=== PATIENT | female | born 1940 | race Caucasian/White ===

== ENCOUNTER → 2017-06-13 | Outpatient (CLI) | payer MEDICARE ==
[~2017-06-13] MED LIST: IOPAMIDOL-370 75 ML VIAL IV ONE
== END | disposition home or self-care (01) ==
LOC: RAH 07:48
PROVIDERS: ATTEND Family Medicine
DX: N28.1 Cyst of kidney, acquired (principal); K57.30 Diverticulosis of large intestine without perforation or abscess without bleeding; N13.30 Unspecified hydronephrosis; I72.2 Aneurysm of renal artery; N94.89 Other specified conditions associated with female genital organs and menstrual cycle; Z85.528 Personal history of other malignant neoplasm of kidney; Z90.5 Acquired absence of kidney; Z90.710 Acquired absence of both cervix and uterus
CPT/HCPCS: 74178; Q9967

== ENCOUNTER → 2017-06-17 | Outpatient (CLI) | payer MEDICARE | END | disposition home or self-care (01) | LOC: RAH 09:16 | PROVIDERS: ATTEND Internal Medicine Cardiovascular Disease | DX: I63.9 Cerebral infarction, unspecified (principal); G31.9 Degenerative disease of nervous system, unspecified | CPT/HCPCS: 70450 ==

== ENCOUNTER → 2020-09-29 | Outpatient (CLI) | payer MEDICARE | END | disposition home or self-care (01) | LOC: RAH 07:47 | PROVIDERS: ATTEND Family Medicine | DX: K76.0 Fatty (change of) liver, not elsewhere classified (principal); K57.30 Diverticulosis of large intestine without perforation or abscess without bleeding; I87.8 Other specified disorders of veins; N20.0 Calculus of kidney | CPT/HCPCS: 74176 ==

== ENCOUNTER → 2023-10-19 | Outpatient (CLI) | payer MEDICARE ==
[~2023-10-19] MED LIST changes: +IOHEXOL 350 MG/ML 100ML INFUS..BTL IV ONE; -IOPAMIDOL-370 75 ML VIAL IV ONE; +METOPROLOL TARTRATE 1 MG/ML 5ML VIAL IV ONE
== END | disposition home or self-care (01) ==
LOC: RAH 11:29
PROVIDERS: ATTEND Internal Medicine Cardiovascular Disease
DX: I25.110 Atherosclerotic heart disease of native coronary artery with unstable angina pectoris (principal)
CPT/HCPCS: 75574; J3490; Q9967

== ENCOUNTER → 2023-11-09 | Outpatient (CLI) | payer MEDICARE | END | disposition home or self-care (01) | LOC: RAH 12:33 | PROVIDERS: ATTEND Family Medicine | DX: N28.1 Cyst of kidney, acquired (principal); N94.89 Other specified conditions associated with female genital organs and menstrual cycle; N20.0 Calculus of kidney; N28.89 Other specified disorders of kidney and ureter; Z90.5 Acquired absence of kidney; Z90.49 Acquired absence of other specified parts of digestive tract | CPT/HCPCS: 74176 ==

== ENCOUNTER 2024-07-06 11:00 | Inpatient (IN) | payer MEDICARE ==
[~2024-07-06] VITALS: Ht 154.9 cm; Wt 81.6 kg
[2024-07-06 12:11] LABS: BASOPHILS # (AUTO) 0.04 K/uL (0.00-0.20); BASOPHILS % (AUTO) 0.5 % (0.0-5.0); EOSINOPHILS # (AUTO) 0.11 K/uL (0.00-0.70); EOSINOPHILS % (AUTO) 1.3 % (0.0-8.0); HEMATOCRIT 35.9 % (36-48); IMMATURE GRANULOCYTE ABSOLUTE 0.06 K/uL (0-1); LYMPHOCYTES # (AUTO) 1.7 K/uL (1.0-4.8); LYMPHOCYTES % (AUTO) 19.5 % (21.0-51.0); MEAN CORPUSCULAR HEMOGLOBIN 31.7 pg (27.0-33.0); MEAN CORPUSCULAR HGB CONC 32.6 g/dL (32.0-36.0); MEAN CORPUSCULAR VOLUME 97.3 fL (79-99); MONOCYTES # (AUTO) 0.9 K/uL (0.1-1.0); MONOCYTES % (AUTO) 10.6 % (3.0-13.0); NEUTROPHILS # (AUTO) 5.9 K/uL (1.8-7.7); NEUTROPHILS % (AUTO) 67.4 % (40.0-77.0); PLATELET COUNT (AUTO) 283 K/uL (130-400); RED BLOOD CELL COUNT(AUTO) 3.69 MIL/uL (4.00-5.50); RED CELL DISTRIBUTION WIDTH 13.5 % (11.0-15.5); WHITE BLOOD COUNT (AUTO) 8.7 K/uL (4.8-10.8)
[2024-07-06 12:15] LABS: INR 1.03 (0.85-1.15); PROTHROMBIN TIME 11.5 SEC (9.6-11.6)
[2024-07-06 12:16] LABS: PARTIAL THROMBOPLASTIN TIME 28.7 SEC (26.3-35.5)
--- NOTE | 2024-07-06 12:19 | EKG ---
[facility] Test Date: 2024-07-06 Test Time: 12:38:43 Pat Name: PACO MUNOZ Department: Patient ID: [id number] Room: Gender: F Tanbark Peeler: [id number] : 1940 Requested By: JOHN MAYNARD Order Number: [id number] Reading MD: Tiburcio Flor Measurements Intervals Philip Rate: 63 P: 56 MO: 167 QRS: -3 QRSD: 89 T: 30 QT: 418 QTc: 429 Interpretive Statements Sinus rhythm Atrial premature complex Compared to ECG 04/22/2017 21:55:47 Atrial premature complex(es) now present Ventricular premature complex(es) no longer present Left ventricular hypertrophy no longer present Electronically Signed On 07-07-2024 17:15:02 HEAD CONCIERGE by Tiburcio Flor Please click the below link to view image of tracing.
[2024-07-06 12:23] LABS: ALBUMIN 3.4 g/dL (3.5-5.0); BILIRUBIN,TOTAL 0.4 mg/dL (0.2-1.0); CREATININE 1.1 mg/dL (0.5-1.0); POTASSIUM 3.8 mmol/L (3.5-5.1); TOTAL PROTEIN, SERUM 7.2 g/dL (6.0-8.3)
[2024-07-06 12:44] VITALS: BP 164/60; PULSE 71; RESP 18; TEMP 97.3
[2024-07-06] MEDS ORDERED: ACET-2743 PO (13:55)
[2024-07-06] MEDS ORDERED: L THYROXINE PO (13:55)
[2024-07-06] MEDS ORDERED: HYDR25TA PO (13:55)
[2024-07-06] MEDS ORDERED: VITA1CAP17 PO (13:55)
[2024-07-06] MEDS ORDERED: FAMO20TA8 PO (13:55)
[2024-07-06] MEDS ORDERED: LOSA100T59 PO (13:55)
[2024-07-06] MEDS ORDERED: PRAV10TA39 PO (13:55)
[2024-07-06] MEDS ORDERED: LORA10TA7 PO (13:55)
[2024-07-06] MEDS ORDERED: APIX5TAB PO (13:55)
[2024-07-06] MEDS ORDERED: METO-391 PO (13:55)
[2024-07-06] MEDS ORDERED: GABA-529 PO ×2 (13:55)
[2024-07-06] MEDS ORDERED: FOLI0.8T43 PO (13:55)
[2024-07-06] MEDS ORDERED: HYDR-4060 PO (13:55)
[2024-07-06] MEDS ORDERED: CHOL200013 PO (13:55)
--- NOTE | 2024-07-06 14:01 | NUR ---
VERIFIED CALLED MEME TO VERIFY ELIQUIS HOLD FOR 48 HRS. PER MEME IT IS 48 HRS
[2024-07-11] VITALS (34 sets, daily range): BP systolic 97–156; BP diastolic 46–75; PULSE 56–81; RESP 12–19; TEMP 97.1–98.3; O2SAT 100
[2024-07-11] MEDS: ceFAZolin SODIUM 2 GM VIAL IVPB ONE
[2024-07-11] MEDS: INVANZ 1GM+NS 50ML IVPB 50 ML IV SCH (07:00)
[2024-07-11] MEDS: FAMOTIDINE 20MG VIAL IV ONE (07:08)
[2024-07-11] MEDS: acetaMINOPHEN 100 ML ONE (07:10)
[2024-07-11] MEDS ORDERED: ketaMINE 50MG/ML SYRINGE 50 MG/ML DISP.SYRIN ONE (07:12)
[2024-07-11] MEDS ORDERED: proPOFol 10 MG/ML 20ML VIAL IV ONE (07:18)
[2024-07-11] MEDS ORDERED: LIDOCAINE PF 100MG/5ML (2%) SYRINGE 5ML ONE (07:18)
[2024-07-11] MEDS ORDERED: rocuRONium bROMide 10MG/1ML 5ML VL ONE ×2 (07:18→09:48)
[2024-07-11] MEDS ORDERED: FENTanyl CITRate PF 50 MCG/1 ML 2ML VIAL ONE (07:18)
[2024-07-11] MEDS ORDERED: BUPIvacaine/PF 0.25% 30ML VIAL IJ ONE (07:47)
[2024-07-11] MEDS: 0.9%NACL 1000ML 1,000 ML IV ONE (08:49)
[2024-07-11] MEDS ORDERED: dexaMETHasone SOD PHOSPHATE 10MG/ML 1ML VIAL ONE (09:14)
[2024-07-11] MEDS ORDERED: ondanSETRON 4MG INJ ONE (09:15)
[2024-07-11] MEDS: ERTAPENEM SODIUM 1 GM/VIAL IV ONE (09:15)
[2024-07-11] MEDS ORDERED: phenylEPHRINE HCL 10 MG/ML 1ML VIAL IV ONE (09:26)
[2024-07-11] MEDS ORDERED: GLYCOPYRROLATE 0.2 MG/ML 5 ML VIAL ONE (13:13)
[2024-07-11] MEDS ORDERED: NEOSTIGMINE METHYLSULFATE 1MG/ML IV ONE (13:13)
[2024-07-11] MEDS: FENTanyl CITRate PF 50 MCG/1 ML 2ML VIAL ONE ×3 (13:54→15:21)
--- NOTE | 2024-07-11 13:57 | OP ---
Operative Note: DATE OF PROCEDURE: 07/11/24 SURGEON: JOHN MAYNARD MD PACKAGING LINE ATTENDANT: [None] ANESTHESIA: [General endotracheal anesthesia] ANESTHESIOLOGIST/APPLIANCE MECHANIC: [] PREOPERATIVE DIAGNOSIS: [Colovaginal fistula. Diverticulitis.] POSTOPERATIVE DIAGNOSIS: [Colovaginal fistula. Diverticulitis. Intra- abdominal adhesions.] SYNOPSIS: [No leak from anastomosis. Colovaginal fistula.] PROCEDURE: [Robotic low anterior resection. Creation of omental flap. Intraoperative flexible sigmoidoscopy. Extensive lysis of adhesions greater than 1 hour atypical for this case, extended procedural service.] ESTIMATED BLOOD LOSS: [100 mL] INDICATIONS: [The patient is a very pleasant 83-year-old female who presents to the office with a colovaginal fistula. She was offered operative management. The complications, risks alternatives and benefits were discussed with her and her family. Risks include infection, bleeding, injury to surrounding structures, need for further surgery, leak from anastomosis, need for stoma and poor bowel function. All questions were answered to their satisfaction and they all wished to proceed with the operation.] DESCRIPTION OF PROCEDURE: [The patient was brought to the operating theater and placed supine on the operating table. After appropriate general endotracheal anesthesia was administered and IV antibiotics given the patient was placed in the low lithotomy position. The abdomen was prepped and draped in appropriate sterile surgical fashion. Local anesthetic was injected and the Veress needle was used to insufflate the abdomen. The Optiview technique was used to the enter the abdomen without any injury to surrounding structures. Abdomen was explored and there was significant adhesions. Four other trocars were placed under direct visualization. The adhesions were lysed laparoscopically this was an extended procedural service atypical for this operation. The robot was then docked in the usual sterile fashion. The left colon was mobilized along the white line of Toldt. The left ureter was identified and preserved. The right ureter was identified and preserved. The mesentery supplying the segment of colon to be resected was isolated and transected with a stapler. The colon was densely adhered to the pelvic sidewall and of the vagina and this was taken down. The bladder was insufflated there was no evidence of injury. Colon was then amputated. A end-to-end anastomosis was created between the colon and the rectum. This was done with the 25 EEA stapler. The anastomosis was tested with significant amount of pressure without any evidence of leak. An AmnioFix was wrapped around the anastomosis. A flexible sigmoidoscope was inserted and passed through the anastomosis which was viable and had no evidence of bleeding. There was no evidence of leak at this point in time. An omental flap was created and placed in the pelvis. The fascia for the Pfannenstiel incision was closed with 1. PDS. 12 mm trocar site was closed with 0 Vicryl. Skin incisions closed with Monocryl. There were no complications. The instrument, sponge and needle count were reported as correct x2 by nursing staff. Excellent hemostasis was achieved before the end of the procedure.] JOHN MAYNARD MD Jul 11, 2024 13:57
[2024-07-11] MEDS ORDERED: morPHINE 2 MG SYG IV PRN (14:00)
[2024-07-11] MEDS ORDERED: ondanSETRON 4MG INJ IVP PRN (14:00)
--- NOTE | 2024-07-11 16:00 | NUR ---
ADMITTED FROM PACU Patient in room from pacu. Aox4, drowsy. VSS. Pain minimal, main complaint of pain in back due to bed. Patient oriented to room and given clear liquid. Son at bedside.
[2024-07-11] MEDS: HYDROcodone/APAP 5/325 1 TAB TABLET PO PRN (17:05)
--- NOTE | 2024-07-11 18:32 | HP ---
[facility] HISTORY AND PHYSICAL Date of Service: Jul 11, 2024 Time of Service: 18:32 HISTORY OF PRESENT ILLNESS: Date of service: 07/11/2024, patient was seen in PACU 83-year-old female with underlying history of hypertension, hyperlipidemia, atrial fibrillation, type 2 diabetes mellitus, history of chronic anticoagulation with Eliquis who has a history of colovaginal fistula followed by Dr. Richard with Colorectal surgery as outpatient. Patient today underwent robotic low anterior resection with lysis of intra-abdominal adhesions, colorectal anastomosis and repair of colovesical fistula. Patient is followed by Dr. York with Cardiology as outpatient. She has a history of atrial fibrillation and is maintained on metoprolol succinate 75 mg b.i.d. and Eliquis 5 mg b.i.d.. Patient does report that the last dose of Eliquis was about two days ago. Patient was seen postoperatively, she denies any chest pain, shortness of breath. Denies taking any diabetic medications as outpatient. Patient does report having postsurgical abdominal pain which she rates as 7/10 in intensity. Patient will be monitored closely while admitted. REVIEW OF SYSTEMS CONSTITUTIONAL: Denies fevers, chills, or night sweats. No unintentional weight loss reported. NEUROLOGICAL: Denies headache, amaurosis fugax, motor weakness, sensory deficit, vertigo/spinning sensation, gait abnormalities, or tremors. ENT: No hearing loss, otalgia, otorrhea, rhinitis, rhinorrhea, hoarseness, or sore throat. CARDIOVASCULAR: Denies any exertional angina, dyspnea on exertion, orthopnea, paroxysmal nocturnal dyspnea, palpitations, life-threatening arrhythmias, claudication. PULMONARY: Denies any shortness of breath, cough, phlegm/sputum, hemoptysis, pleuritic chest pain. SLEEP: Denies morning headaches, daytime somnolence or napping. Denies difficulty falling asleep, staying asleep, waking from sleep. Denies knowledge of snoring. GASTROINTESTINAL: Postoperative abdominal pain as expected GENITOURINARY: Denies frequency, urgency, nocturia, hematuria or incontinence (Storage/Irritative symptoms.) Low urinary stream, straining to void, urinary intermittency or hesitancy, splitting of the voiding stream, terminal dribbling. ENDOCRINOLOGIC: Denies polyuria, polydipsia, polyphagia or heat/cold intolerances. HEMATOLOGIC: Denies thrombophilia/previous clots, or coagulopathy/bleeding disorders. ONCOLOGIC: Denies personal history of malignancy. DERMATOLOGIC: Denies rashes or pruritus. PSYCHIATRIC: Denies any suicidal or homicidal ideation. Denies hallucinations. PAST MEDICAL HISTORY: Hypertension, hyperlipidemia, type 2 diabetes mellitus, history of chronic kidney disease, history of renal cell cancer status post right nephrectomy, arthritis, history of colo-vaginal fistula, GERD PAST SURGICAL HISTORY: Cholecystectomy in 1991, hysterectomy, appendectomy, hernia repair, tonsillectomy, knee replacement, right nephrectomy, history of lower anterior re section for colovaginal fistula in 1991 PAST SOCIAL HISTORY: Patient denies active smoking or alcohol consumption FAMILY HISTORY: Denies pertinent family history Allergies: Patient has allergic reaction to sulfa, adhesive tape, codeine Coded Allergies: Sulfa (Sulfonamide Antibiotics) (Verified Allergy, Unknown, 07/06/24) adhesive tape (Unverified Allergy, Unknown, 07/06/24) codeine (Verified Allergy, Unknown, 07/06/24) PHYSICAL EXAM GENERAL APPEARANCE: The patient is awake, alert, and oriented, in no acute cardiopulmonary distress. NEUROLOGICAL: Cranial nerves II-XII grossly intact. Motor is 5/5 in bilateral upper and lower extremities proximal to distal. No sensory deficits. HEENT: Face is symmetric. Pupils are equal and reactive. Extraocular movements are intact. NECK: Supple. No JVD. No thyromegaly. No submental, submandibular, pre- /postauricular, occipital or supraclavicular lymphadenopathy. CHEST: Normal chest expansion. No Telemetry. LUNGS: Absence of any rales, rhonchi or any wheezing. CARDIOVASCULAR: Regular. S1 and S2 normal. No appreciable rubs, murmurs or gallops. ABDOMEN: Soft, surgical incision site appears clean, dry and intact : Deferred. No Omer. EXTREMITIES: Non-edematous and not cyanotic. No clubbing. Good capillary refill. SKIN: No skin breakdown. Vital Sign (Last 24 Hours) 07/11/24 07/11/24 16:00 18:00 Temp 98.2 Pulse 76 Resp 18 B/P (MAP) 153/66 Pulse Ox 100 O2 Delivery Nasal Cannula O2 Flow Rate 3.0 FiO2 28 LABS: Laboratory: Test 07/11/24 14:22 Range/Units Whole Blood Glucose 227 #H 70-110 MG/DL Current Medications Medications (Trade) Dose Ordered Sig/Brandon Route PRN Reason Start Time Stop Time Status Last Admin Dose Admin Acetaminophen (TYLenol 325MG TAB) 650 mg Q4H PRN PO TEMPERATURE GREATER THAN 101 07/11/24 14:00 08/10/24 13:59 Acetaminophen/ Hydrocodone Bitart (NORco 5/325MG) 1 tab Q4H PRN PO MODERATE PAIN (4-6) 07/11/24 14:00 07/16/24 13:59 07/11/24 17:05 1 TAB Atorvastatin Calcium (LIPItor 10MG) 5 mg HS PO 07/11/24 21:00 08/10/24 20:59 Enoxaparin Sodium (Lovenox) 40 mg DAILY SQ 07/12/24 09:00 08/11/24 08:59 Ertapenem 50 ml @ 100 mls/hr ONCALL IV 07/11/24 07:00 07/11/24 14:00 DC Famotidine (Pepcid 20mg Vial) 20 mg DAILY IV 07/12/24 09:00 08/11/24 08:59 Gabapentin (NEURontin 100 mg CAP) 100 mg AM PO 07/12/24 09:00 08/11/24 08:59 Gabapentin (NEURontin 100 mg CAP) 200 mg HS PO 07/11/24 21:00 08/10/24 20:59 Home Med (Home Medication) (Vitamin B Complex & Vit C N... AM PO 07/12/24 09:00 08/11/24 08:59 Home Med (Home Medication) ([L Thyroxine] 150 MCG) AM PO 07/12/24 09:00 08/11/24 08:59 Insulin Human Regular (humuLIN R 100 UNIT/ML 3ML) AD PRN SQ SLIDING SCALE COVERAGE 07/11/24 14:00 08/10/24 13:59 Loratadine (LORATAdine 10 mg) 10 mg AM PO 07/12/24 09:00 08/11/24 08:59 Losartan Potassium (CozAAR 50 mg TAB) 50 mg BID PO 07/11/24 21:00 07/11/24 15:41 DC Metoprolol Succinate (TopROL XL) 25 mg BID PO 07/11/24 21:00 08/10/24 20:59 Metoprolol Succinate (TopROL XL) 50 mg BID PO 07/11/24 21:00 08/10/24 20:59 Morphine Sulfate (morPHINE 2MG SYG) 2 mg Q3H PRN IV MODERATE PAIN (4-6) 07/11/24 14:00 07/11/24 14:06 DC Morphine Sulfate (morPHINE 4MG SYG) 4 mg Q3H PRN IV SEVERE PAIN (7-10) 07/11/24 14:00 07/18/24 13:59 Ondansetron HCl (zoFRAN 4MG INJ) 4 mg Q4H PRN IVP NAUSEA 07/11/24 14:00 08/10/24 13:59 Potassium Chloride/Dextrose/ Sod Cl 1,000 ml @ 75 mls/hr [id number] IV 07/11/24 14:00 08/10/24 13:59 Vitamin B Complex/ Vit C/Folic Acid (Nephrovite Tablet) 1 cap DAILY PO 07/12/24 09:00 08/11/24 08:59 DIAGNOSTICS / RADIOLOGY: none ASSESSMENT: History of colo-vaginal fistula and diverticulitis, POA Status post robotic low anterior resection with extensive lysis of abdominal adhesions with Colorectal anastomosis and repair of colo-vaginal fistula by Dr. Richard, 07/11/2024 History of hypertension, POA Hyperlipidemia, POA Type 2 diabetes mellitus, POA History of paroxysmal atrial fibrillation, POA History of chronic anticoagulation with Eliquis, POA Chronic kidney disease, POA History of renal cell cancer status post right nephrectomy, POA PLAN: Patient will continue with close monitoring in medical-surgical floor under telemetry monitoring Continue with metoprolol succinate 75 mg b.i.d. for management of atrial fibrillation Patient initially had blood pressure in the 100s to 110 systolic in the PACU unit, blood pressure is starting to increase, continue with home dose of metoprolol succinate tonight, and we will dose adjust losartan to 50 mg bid ba sed on blood pressure trend. If patient remains hypertensive, we will resume HCTZ 25 mg tomorrow We will place patient on sliding scale insulin a.c. and HS Patient will have a cystogram tomorrow post operatively Continue with postoperative fluids and pain control per Dr. Richard We will hold Eliquis, we will defer to surgery when patient can safely resume anticoagulation given underlying history of atrial fibrillation All labs will be repeated in the morning Continue with DVT prophylaxis Lovenox, and Pepcid Date of service: 07/11/2024 Plan of care was discussed with patient at bedside, Julio C Hernadez MD Advanced Care Planning: Which of the following were discussed: Hospice care: Yes __ No _x_ Therapeutic options: Yes _x_ No __ Advance directives: Yes _x_ No __ Other discussions: Discussed with who?: Patient Voluntary nature of this service was explained to the patient? Yes _x_ No __ Amount of time spent: 20 minutes JULIO C HERNADEZ MD Jul 11, 2024 18:32
[2024-07-11] MEDS: D5W-1/2 NS/20MEQ KCL 1,000 ML IV SCH (19:27)
[2024-07-11] MEDS: morPHINE 4 MG SYG IV PRN (19:27)
[2024-07-11] MEDS ORDERED: hydrALAZine 20MG/ML VIAL IV PRN (19:30)
[2024-07-11] MEDS: INSULIN humuLIN R 100 UNIT/ML 3ML SQ PRN (20:00)
[2024-07-11] MEDS: metOPROLol sucCINATE 25 MG TAB.SR.24H PO SCH (20:02)
[2024-07-11] MEDS: atorVAStatin 10 MG TABLET PO SCH (20:02)
[2024-07-11] MEDS: LoSARTan 50 MG TABLET PO SCH (20:02)
[2024-07-11] MEDS: metOPROLol sucCINATE 50 MG TAB.SR.24H PO SCH (20:02)
[2024-07-11] MEDS: GABApentin 100 MG CAPSULE PO SCH (20:02)
[2024-07-11] MEDS: acetaMINOPHEN 325 MG TAB PO PRN (20:34)
[2024-07-11] MEDS ORDERED: LoSARTan 50 MG TABLET PO SCH (21:00)
[2024-07-12] VITALS (7 sets, daily range): BP systolic 97–147; BP diastolic 41–62; PULSE 72–80; RESP 17–20; TEMP 97.5–98.9; O2SAT 96–97
[2024-07-12 05:18] LABS: BASOPHILS # (AUTO) 0.01 K/uL (0.00-0.20); BASOPHILS % (AUTO) 0.1 % (0.0-5.0); EOSINOPHILS # (AUTO) 0.01 K/uL (0.00-0.70); EOSINOPHILS % (AUTO) 0.1 % (0.0-8.0); HEMATOCRIT 30.8 % (36-48); IMMATURE GRANULOCYTE ABSOLUTE 0.05 K/uL (0-1); LYMPHOCYTES # (AUTO) 0.8 K/uL (1.0-4.8); LYMPHOCYTES % (AUTO) 7.8 % (21.0-51.0); MEAN CORPUSCULAR HGB CONC 33.4 g/dL (32.0-36.0); MEAN CORPUSCULAR VOLUME 95.7 fL (79-99); MONOCYTES # (AUTO) 1.4 K/uL (0.1-1.0); MONOCYTES % (AUTO) 13.8 % (3.0-13.0); NEUTROPHILS # (AUTO) 7.9 K/uL (1.8-7.7); NEUTROPHILS % (AUTO) 77.7 % (40.0-77.0); PLATELET COUNT (AUTO) 278 K/uL (130-400); RED BLOOD CELL COUNT(AUTO) 3.22 MIL/uL (4.00-5.50); RED CELL DISTRIBUTION WIDTH 13.1 % (11.0-15.5); WHITE BLOOD COUNT (AUTO) 10.2 K/uL (4.8-10.8)
[2024-07-12 05:31] LABS: WBC MORPHOLOGY CONSISTENT W/DIFF
[2024-07-12 05:32] LABS: CREATININE 1.3 mg/dL (0.5-1.0); MAGNESIUM 1.7 mg/dL (1.80-2.40); POTASSIUM 4.1 mmol/L (3.5-5.1); THYROID STIMULATING HORMONE 0.42 uIU/mL (0.36-3.74)
[2024-07-12 05:53] LABS: HEMOGLOBIN A1C 5.9 % (4.0-6.0)
--- NOTE | 2024-07-12 08:14 | PN ---
COLORECTAL PROGRESS NOTE Date of Visit: Jul 12, 2024 Time of Visit: 08:11 Events / Notes: [83 yo with colovaginal fistula and diverticulitis who underwent a robotic low anterior resection with creation of omental flap, intraoperative flexible sig moidoscopy, and extensive lysis of adhesions. Her VSS this morning and she is hemodynamically stable. On exam, patient is resting in HF. Respirations unlabored with BBS clear. She has tolerated clear fluids with no n/v. Abdomen is soft with active bs. Incisions D&I eliseo with dermabond. Torsten drain with sanguinous output. Navarro cath draining clear concentrated urine. SCDS in place. Oriented to poc and encouraged I/S exercises and ambulation. She verbalized understanding and agreement. Son at bedside. Review of Systems: CONSTITUTIONAL: No malaise or change in sensation of wellbeing. ENMT: No rhinorrhea, otorrhea, sinus pain, ear ache. CARDIOVASCULAR: No angina, palpitations, orthopnea or paroxysmal dyspnea. RESPIRATORY: No SOB. GASTROINTESTINAL: No abdominal pain, nausea, vomiting, diarrhea, hematemesis, melena or change in the patient's habitual bowel movements consistency/number. GENITOURINARY: No dysuria, hematuria or change in bladder continence. MUSCULOSKELETAL: No new muscle pain or decrease in muscular strength. No new joint swelling, redness or tenderness. SKIN: No new rash. Physical Exam: GEN: Awake, alert, oriented in person, time and place, and in no acute distress. HEENT:No rhinorrhea. Oral pharyngeal mucosa is pink, moist and within normal limits. CHEST: Inspection, and palpation of the chest were unremarkable. Lung auscultation revealed normal breath sounds bilaterally. CARDIAC: PMI is within normal limits. Heart sounds are regular. ABD: Soft, non-tender and not distended. No peritoneal signs on palpation. No organomegaly. Normal bowel sounds. Incisions D&I rotary driller with dermabond. TORSTEN drain with sanguinous output. Navarro cath with clear concentrated urine. EXT: No cyanosis or clubbing. 1-2 + edema to bilateral lower extremities. SCDS in place. . SKIN: Intact. No rashes. JOINTS: No evidence of synovitis or acute arthritis. NEURO: Alert and oriented to name, place and person. No focal motor deficits. Normal speech. Strength is normal. Vital Signs (last 8hr) Date Time Temp Pulse Resp B/P (MAP) Pulse Ox O2 Delivery O2 Flow Rate FiO2 07/12/24 06:29 72 18 N/Cannula Low lpm 1.0 24 07/12/24 04:00 97.7 80 17 114/62 97 Nasal Cannula 1.0 Laboratory: [ ] Laboratory: Test 07/12/24 05:28 07/12/24 04:39 Range/Units Whole Blood Glucose 131 H 70-110 MG/DL White Blood Count 10.2 4.8-10.8 K/uL Red Blood Count 3.22 L 4.00-5.50 MIL/uL Hemoglobin 10.3 L 12.0-16.0 g/dL Hematocrit 30.8 L 36-48 % Mean Corpuscular Volume 95.7 79-99 fL Mean Corpuscular Hemoglobin 32.0 27.0-33.0 pg Mean Corpuscular Hemoglobin Concent 33.4 32.0-36.0 g/dL Red Cell Distribution Width 13.1 11.0-15.5 % Platelet Count 278 130-400 K/uL Mean Platelet Volume 10.3 7.5-10.5 fL Immature Granulocyte % (Auto) 0.5 0-1 % Neutrophils (%) (Auto) 77.7 H 40.0-77.0 % Lymphocytes (%) (Auto) 7.8 L 21.0-51.0 % Monocytes (%) (Auto) 13.8 H 3.0-13.0 % Eosinophils (%) (Auto) 0.1 0.0-8.0 % Basophils (%) (Auto) 0.1 0.0-5.0 % Neutrophils # (Auto) 7.9 H 1.8-7.7 K/uL Lymphocytes # (Auto) 0.8 L 1.0-4.8 K/uL Monocytes # (Auto) 1.4 H 0.1-1.0 K/uL Eosinophils # (Auto) 0.01 0.00-0.70 K/uL Basophils # (Auto) 0.01 0.00-0.20 K/uL Absolute Immature Granulocyte (auto 0.05 0-1 K/uL Nucleated Red Blood Cells 0.0 0.0-0.19 % White Cell Morphology Comment CONSISTENT W/DIFF Sodium Level 137 136-145 mmol/L Potassium Level 4.1 3.5-5.1 mmol/L Chloride Level 104 101-111 mmol/L Carbon Dioxide Level 25 21-32 mmol/L Blood Urea Nitrogen 18 7-18 mg/dL Creatinine 1.3 H 0.5-1.0 mg/dL Glomerular Filtration Rate Calc 41 >90 mL/min Random Glucose 133 H 70-105 mg/dL Hemoglobin A1c 5.9 4.0-6.0 % Estimated Average Glucose (eAG) 123 70-126 mg/dL Total Calcium 8.2 L 8.5-10.1 mg/dL Magnesium Level 1.70 L 1.80-2.40 mg/dL Thyroid Stimulating Hormone (TSH) 0.42 0.36-3.74 uIU/mL Current Medications Medications (Trade) Dose Ordered Sig/Brandon Route PRN Reason Start Time Stop Time Status Last Admin Dose Admin Acetaminophen (TYLenol 325MG TAB) 650 mg Q4H PRN PO TEMPERATURE GREATER THAN 101 07/11/24 14:00 08/10/24 13:59 07/11/24 20:34 650 MG Acetaminophen/ Hydrocodone Bitart (NORco 5/325MG) 1 tab Q4H PRN PO MODERATE PAIN (4-6) 07/11/24 14:00 07/16/24 13:59 07/11/24 23:48 1 TAB Atorvastatin Calcium (LIPItor 10MG) 5 mg HS PO 07/11/24 21:00 08/10/24 20:59 07/11/24 20:02 5 MG Enoxaparin Sodium (Lovenox) 40 mg DAILY SQ 07/12/24 09:00 08/11/24 08:59 Ertapenem 50 ml @ 100 mls/hr ONCALL IV 07/11/24 07:00 07/11/24 14:00 DC Famotidine (Pepcid 20mg Vial) 20 mg DAILY IV 07/12/24 09:00 08/11/24 08:59 Gabapentin (NEURontin 100 mg CAP) 100 mg AM PO 07/12/24 09:00 08/11/24 08:59 Gabapentin (NEURontin 100 mg CAP) 200 mg HS PO 07/11/24 21:00 08/10/24 20:59 07/11/24 20:02 200 MG Home Med (Home Medication) (Vitamin B Complex & Vit C N... AM PO 07/12/24 09:00 08/11/24 08:59 Home Med (Home Medication) ([L Thyroxine] 150 MCG) AM PO 07/12/24 09:00 08/11/24 08:59 Hydralazine HCl (APRESOLine 20MG INJ) 5 mg Q6H PRN IV ADMINISTER FOR SBP > 160 07/11/24 19:30 08/10/24 19:29 Insulin Human Regular (humuLIN R 100 UNIT/ML 3ML) AD PRN SQ SLIDING SCALE COVERAGE 07/11/24 14:00 08/10/24 13:59 Loratadine (LORATAdine 10 mg) 10 mg AM PO 07/12/24 09:00 08/11/24 08:59 Losartan Potassium (CozAAR 50 mg TAB) 50 mg BID PO 07/11/24 21:00 07/11/24 15:41 DC Losartan Potassium (CozAAR 50 mg TAB) 50 mg BID PO 07/11/24 21:00 08/10/24 20:59 07/11/24 20:02 50 MG Metoprolol Succinate (TopROL XL) 25 mg BID PO 07/11/24 21:00 08/10/24 20:59 07/11/24 20:02 25 MG Metoprolol Succinate (TopROL XL) 50 mg BID PO 07/11/24 21:00 08/10/24 20:59 07/11/24 20:02 50 MG Morphine Sulfate (morPHINE 2MG SYG) 2 mg Q3H PRN IV MODERATE PAIN (4-6) 07/11/24 14:00 07/11/24 14:06 DC Morphine Sulfate (morPHINE 4MG SYG) 4 mg Q3H PRN IV SEVERE PAIN (7-10) 07/11/24 14:00 07/18/24 13:59 07/11/24 22:35 4 MG Ondansetron HCl (zoFRAN 4MG INJ) 4 mg Q4H PRN IVP NAUSEA 07/11/24 14:00 08/10/24 13:59 Potassium Chloride/Dextrose/ Sod Cl 1,000 ml @ 75 mls/hr [id number] IV 07/11/24 14:00 08/10/24 13:59 07/11/24 19:27 75 MLS/HR Vitamin B Complex/ Vit C/Folic Acid (Nephrovite Tablet) 1 cap DAILY PO 07/12/24 09:00 08/11/24 08:59 ] Assessment: [Colovaginal fistula, diverticulitis] Plan: [Advance diet Leave navarro cath in place. Pending Cystogram Encourage ambulation tid PT to assist with ambulation Encourage I/S exercises Pain meds as needed Antiemetics prn Please call with questions, concerns, and change in clinical status' Plan for disposition in the next 24-48 hours Appreciate hospitalist's assistance in our patient's care. ] DYLAN ELIZALDE NP Jul 12, 2024 08:14
[2024-07-12] MEDS: THYROXINE PO SCH (08:34)
[2024-07-12] MEDS: (Vitamin B Complex & Vit C No.3 (B Complex with Vitamin C) PO SCH (08:34)
[2024-07-12] MEDS: GABApentin 100 MG CAPSULE PO SCH (08:39)
[2024-07-12] MEDS: LORATAdine 10 mg 10 MG TABLET PO SCH (08:41)
[2024-07-12] MEDS: Vitamin B Complex/Vit C/Folic Acid PO SCH (08:41)
[2024-07-12] MEDS: FAMOTIDINE 20MG VIAL IV SCH (08:41)
[2024-07-12] MEDS: ENOXAPARIN SODIUM 40 MG/0.4 ML SYRINGE SQ SCH (08:45)
[2024-07-12] MEDS ORDERED: PHARMACY COMMUNICATION MISC SCH (09:30)
--- NOTE | 2024-07-12 10:41 | PN ---
[facility] PROGRESS NOTE Date of Service: Jul 12, 2024 Time of Service: 10:34 SUBJECTIVE: [ ] 83-year-old female with underlying history of hypertension, hyperlipidemia, atrial fibrillation, type 2 diabetes mellitus, history of chronic anticoagulation with Eliquis who has a history of colovaginal fistula followed by Dr. Richard with Colorectal surgery as outpatient. Status post robotic low anterior resection with lysis of intra-abdominal adhesions, colorectal anastomosis and repair of colovesical fistula. Is scheduled for a cystogram today. Patient recuperating well hemodynamically stable. REVIEW OF SYSTEMS CONSTITUTIONAL: Denies fevers, chills, or night sweats. No unintentional weight loss reported. NEUROLOGICAL: Denies headache, amaurosis fugax, motor weakness, sensory deficit, vertigo/spinning sensation, gait abnormalities, or tremors. ENT: No hearing loss, otalgia, otorrhea, rhinitis, rhinorrhea, hoarseness, or sore throat. CARDIOVASCULAR: Denies any exertional angina, dyspnea on exertion, orthopnea, paroxysmal nocturnal dyspnea, palpitations, life-threatening arrhythmias, claudication. PULMONARY: Denies any shortness of breath, cough, phlegm/sputum, hemoptysis, pleuritic chest pain. SLEEP: Denies morning headaches, daytime somnolence or napping. Denies difficulty falling asleep, staying asleep, waking from sleep. Denies knowledge of snoring. GASTROINTESTINAL: Postoperative abdominal pain as expected GENITOURINARY: Denies frequency, urgency, nocturia, hematuria or incontinence (Storage/Irritative symptoms.) Low urinary stream, straining to void, urinary intermittency or hesitancy, splitting of the voiding stream, terminal dribbling. ENDOCRINOLOGIC: Denies polyuria, polydipsia, polyphagia or heat/cold intolerances. HEMATOLOGIC: Denies thrombophilia/previous clots, or coagulopathy/bleeding disorders. ONCOLOGIC: Denies personal history of malignancy. DERMATOLOGIC: Denies rashes or pruritus. PSYCHIATRIC: Denies any suicidal or homicidal ideation. Denies hallucinations. PHYSICAL EXAM GENERAL APPEARANCE: The patient is awake, alert, and oriented, in no acute cardiopulmonary distress. NEUROLOGICAL: Cranial nerves II-XII grossly intact. Motor is 5/5 in bilateral upper and lower extremities proximal to distal. No sensory deficits. HEENT: Face is symmetric. Pupils are equal and reactive. Extraocular movements are intact. NECK: Supple. No JVD. No thyromegaly. No submental, submandibular, pre- /postauricular, occipital or supraclavicular lymphadenopathy. CHEST: Normal chest expansion. No Telemetry. LUNGS: Absence of any rales, rhonchi or any wheezing. CARDIOVASCULAR: Regular. S1 and S2 normal. No appreciable rubs, murmurs or gallops. ABDOMEN: Soft, surgical incision site appears clean, dry and intact : Deferred. No Omer. EXTREMITIES: Non-edematous and not cyanotic. No clubbing. Good capillary refill. SKIN: No skin breakdown. Vital Signs (last 8hr) Date Time Temp Pulse Resp B/P (MAP) Pulse Ox O2 Delivery O2 Flow Rate FiO2 07/12/24 08:00 96 Room Air* 0 21 07/12/24 08:00 99.0 74 18 106/46 96 Room Air 21 07/12/24 06:29 72 18 N/Cannula Low lpm 1.0 24 07/12/24 04:00 97.7 80 17 114/62 97 Nasal Cannula 1.0 LABS: Laboratory: Test 07/12/24 05:28 07/12/24 04:39 Range/Units Whole Blood Glucose 131 H 70-110 MG/DL White Blood Count 10.2 4.8-10.8 K/uL Red Blood Count 3.22 L 4.00-5.50 MIL/uL Hemoglobin 10.3 L 12.0-16.0 g/dL Hematocrit 30.8 L 36-48 % Mean Corpuscular Volume 95.7 79-99 fL Mean Corpuscular Hemoglobin 32.0 27.0-33.0 pg Mean Corpuscular Hemoglobin Concent 33.4 32.0-36.0 g/dL Red Cell Distribution Width 13.1 11.0-15.5 % Platelet Count 278 130-400 K/uL Mean Platelet Volume 10.3 7.5-10.5 fL Immature Granulocyte % (Auto) 0.5 0-1 % Neutrophils (%) (Auto) 77.7 H 40.0-77.0 % Lymphocytes (%) (Auto) 7.8 L 21.0-51.0 % Monocytes (%) (Auto) 13.8 H 3.0-13.0 % Eosinophils (%) (Auto) 0.1 0.0-8.0 % Basophils (%) (Auto) 0.1 0.0-5.0 % Neutrophils # (Auto) 7.9 H 1.8-7.7 K/uL Lymphocytes # (Auto) 0.8 L 1.0-4.8 K/uL Monocytes # (Auto) 1.4 H 0.1-1.0 K/uL Eosinophils # (Auto) 0.01 0.00-0.70 K/uL Basophils # (Auto) 0.01 0.00-0.20 K/uL Absolute Immature Granulocyte (auto 0.05 0-1 K/uL Nucleated Red Blood Cells 0.0 0.0-0.19 % White Cell Morphology Comment CONSISTENT W/DIFF Sodium Level 137 136-145 mmol/L Potassium Level 4.1 3.5-5.1 mmol/L Chloride Level 104 101-111 mmol/L Carbon Dioxide Level 25 21-32 mmol/L Blood Urea Nitrogen 18 7-18 mg/dL Creatinine 1.3 H 0.5-1.0 mg/dL Glomerular Filtration Rate Calc 41 >90 mL/min Random Glucose 133 H 70-105 mg/dL Hemoglobin A1c 5.9 4.0-6.0 % Estimated Average Glucose (eAG) 123 70-126 mg/dL Total Calcium 8.2 L 8.5-10.1 mg/dL Magnesium Level 1.70 L 1.80-2.40 mg/dL Thyroid Stimulating Hormone (TSH) 0.42 0.36-3.74 uIU/mL Current Medications Medications (Trade) Dose Ordered Sig/Brandon Route PRN Reason Start Time Stop Time Status Last Admin Dose Admin Acetaminophen (TYLenol 325MG TAB) 650 mg Q4H PRN PO TEMPERATURE GREATER THAN 101 07/11/24 14:00 08/10/24 13:59 07/11/24 20:34 650 MG Acetaminophen/ Hydrocodone Bitart (NORco 5/325MG) 1 tab Q4H PRN PO MODERATE PAIN (4-6) 07/11/24 14:00 07/16/24 13:59 07/11/24 23:48 1 TAB Atorvastatin Calcium (LIPItor 10MG) 5 mg HS PO 07/11/24 21:00 08/10/24 20:59 07/11/24 20:02 5 MG Enoxaparin Sodium (Lovenox) 40 mg DAILY SQ 07/12/24 09:00 08/11/24 08:59 07/12/24 08:45 40 MG Ertapenem 50 ml @ 100 mls/hr ONCALL IV 07/11/24 07:00 07/11/24 14:00 DC Famotidine (Pepcid 20mg Vial) 20 mg DAILY IV 07/12/24 09:00 08/11/24 08:59 07/12/24 08:41 20 MG Gabapentin (NEURontin 100 mg CAP) 100 mg AM PO 07/12/24 09:00 08/11/24 08:59 07/12/24 08:39 100 MG Gabapentin (NEURontin 100 mg CAP) 200 mg HS PO 07/11/24 21:00 08/10/24 20:59 07/11/24 20:02 200 MG Home Med (Home Medication) (Vitamin B Complex & Vit C N... AM PO 07/12/24 09:00 08/11/24 08:59 Home Med (Home Medication) ([L Thyroxine] 150 MCG) AM PO 07/12/24 09:00 08/11/24 08:59 Hydralazine HCl (APRESOLine 20MG INJ) 5 mg Q6H PRN IV ADMINISTER FOR SBP > 160 07/11/24 19:30 08/10/24 19:29 Insulin Human Regular (humuLIN R 100 UNIT/ML 3ML) AD PRN SQ SLIDING SCALE COVERAGE 07/11/24 14:00 08/10/24 13:59 Loratadine (LORATAdine 10 mg) 10 mg AM PO 07/12/24 09:00 08/11/24 08:59 07/12/24 08:41 10 MG Losartan Potassium (CozAAR 50 mg TAB) 50 mg BID PO 07/11/24 21:00 07/11/24 15:41 DC Losartan Potassium (CozAAR 50 mg TAB) 50 mg BID PO 07/11/24 21:00 08/10/24 20:59 07/11/24 20:02 50 MG Metoprolol Succinate (TopROL XL) 25 mg BID PO 07/11/24 21:00 08/10/24 20:59 07/11/24 20:02 25 MG Metoprolol Succinate (TopROL XL) 50 mg BID PO 07/11/24 21:00 08/10/24 20:59 07/11/24 20:02 50 MG Morphine Sulfate (morPHINE 2MG SYG) 2 mg Q3H PRN IV MODERATE PAIN (4-6) 07/11/24 14:00 07/11/24 14:06 DC Morphine Sulfate (morPHINE 4MG SYG) 4 mg Q3H PRN IV SEVERE PAIN (7-10) 07/11/24 14:00 07/18/24 13:59 07/12/24 08:46 4 MG Ondansetron HCl (zoFRAN 4MG INJ) 4 mg Q4H PRN IVP NAUSEA 07/11/24 14:00 08/10/24 13:59 Pharmacy Profile Note (Pharmacy Communication) 1 each ONCE MISC 07/12/24 09:30 07/12/24 09:45 DC Potassium Chloride/Dextrose/ Sod Cl 1,000 ml @ 75 mls/hr [id number] IV 07/11/24 14:00 08/10/24 13:59 07/11/24 19:27 75 MLS/HR Vitamin B Complex/ Vit C/Folic Acid (Nephrovite Tablet) 1 cap DAILY PO 07/12/24 09:00 08/11/24 08:59 07/12/24 08:41 1 CAP DIAGNOSTICS / RADIOLOGY: [ ] ASSESSMENT: History of colo-vaginal fistula and diverticulitis, POA Status post robotic low anterior resection with extensive lysis of abdominal adhesions with Colorectal anastomosis and repair of colo-vaginal fistula by Dr. Richard, 07/11/2024 History of hypertension, POA Hyperlipidemia, POA Type 2 diabetes mellitus, POA History of paroxysmal atrial fibrillation, POA History of chronic anticoagulation with Eliquis, POA Chronic kidney disease, POA History of renal cell cancer status post right nephrectomy, POA PLAN: admit: medical-surgical floor under telemetry monitoring consulted for Medical management: primary DR Richard patient having cystogram today post operatively s/p robotic low anterior resection with extensive lysis of abdominal adhesions with Colorectal anastomosis and repair of colo-vaginal fistula will follow surgeon post operative recommendation cont with IVF's on Eliqus; defer to surgery when to restart Diet: CLD defer Encourage ambulation and deep breathing exercise while awake. IS usage Home medications resumed: metoprolol succinate 75 mg b.i.d. for management of atrial fibrillation and lostartan for BP controlled cont with sliding scale insulin a.c. and HS Replace electrolytes as per protocol to keep potassium above 4.0 magnesium 2.0. Continue pain management for adequate pain control PT services Continue with DVT prophylaxis Lovenox, and Pepcid All questions addressed Further orders as per response to treatment ATTESTATION BY PHYSICIAN I have seen and examined the patient. I reviewed the documentation, medical decision making, and treatment plan as noted by the mid-level provider above. I agree with the findings and plan of care. Lovely Lynn MD, ELIZABETH NP Jul 12, 2024 10:41
[2024-07-12] MEDS: levoTHYROxine 150 MCG TABLET PO ONE (10:56)
--- NOTE | 2024-07-12 11:26 | NUR ---
DCP Patient states lives in house alone and has great neighbors who can "step in" to help. Judith Paulson, Friend/Neighbor [phone] will be readily available. States her POA is Shu Jason, daughter. Her home has 4 steps but does not fell that will be an issue. States she has a walk in shower, shower chair and transfer chair which she usually uses for travel (flights). She states she remains independent and drives self. State sable to complete ADL's on her own. Denies home health services or dialysis services. PCP - Ivonne Morse MD Pharmacy - [facility]. Denies additional needs at discharge at this time. Judith Paulson, Friend/Neighbor [phone] at discharge. Addendum: 07/12/24 at 1133 by MELIDA PRINCE RN CM Amended: Links added.
[2024-07-13] VITALS (8 sets, daily range): BP systolic 111–134; BP diastolic 48–79; PULSE 73–89; RESP 16–20; TEMP 98.3–100.8; O2SAT 95–97
[2024-07-13 05:32] LABS: BASOPHILS # (AUTO) 0.01 K/uL (0.00-0.20); BASOPHILS % (AUTO) 0.1 % (0.0-5.0); EOSINOPHILS # (AUTO) 0.05 K/uL (0.00-0.70); EOSINOPHILS % (AUTO) 0.6 % (0.0-8.0); HEMATOCRIT 29.8 % (36-48); IMMATURE GRANULOCYTE ABSOLUTE 0.05 K/uL (0-1); LYMPHOCYTES # (AUTO) 1.2 K/uL (1.0-4.8); LYMPHOCYTES % (AUTO) 14.1 % (21.0-51.0); MEAN CORPUSCULAR HEMOGLOBIN 31.7 pg (27.0-33.0); MEAN CORPUSCULAR HGB CONC 32.6 g/dL (32.0-36.0); MEAN CORPUSCULAR VOLUME 97.4 fL (79-99); MONOCYTES # (AUTO) 1.4 K/uL (0.1-1.0); MONOCYTES % (AUTO) 15.8 % (3.0-13.0); NEUTROPHILS % (AUTO) 68.8 % (40.0-77.0); PLATELET COUNT (AUTO) 227 K/uL (130-400); RED BLOOD CELL COUNT(AUTO) 3.06 MIL/uL (4.00-5.50); RED CELL DISTRIBUTION WIDTH 13.5 % (11.0-15.5); WHITE BLOOD COUNT (AUTO) 8.8 K/uL (4.8-10.8)
[2024-07-13 05:40] LABS: POTASSIUM 3.8 mmol/L (3.5-5.1)
[2024-07-13] MEDS: levoTHYROxine 150 MCG TABLET PO ONE (05:51)
[2024-07-13] MEDS ORDERED: THYROXINE PO SCH (06:00)
--- NOTE | 2024-07-13 08:02 | PN ---
[facility] PROGRESS NOTE Date of Visit: Jul 13, 2024 Time of Visit: 08:01 Events / Notes: [83 yo with colovaginal fistula and diverticulitis who underwent a robotic low anterior resection with creation of omental flap, intraoperative flexible sig moidoscopy, and extensive lysis of adhesions. Her VSS this morning and she is hemodynamically stable. On exam, patient is resting in HF. Respirations unlabored with BBS clear. She has tolerated clear fluids with no n/v. Abdomen is soft with active bs. Incisions D&I eliseo with dermabond. Torsten drain with sanguinous output. Navarro cath draining clear concentrated urine. SCDS in place. Oriented to poc and encouraged I/S exercises and ambulation. She verbalized understanding and agreement. Son at bedside. 07/13/24: VSS. WBC wnl. She is tolerating soft diet without any n/v. BBS are clear. Abdomen is soft and not distended. Active BS present. Incisions with some ecchymosis. Less tenderness today. She has not passed any flatus. Cystogram is pending. She is requesting to be discharged today. Informed of need to wait for cystogram report and will determine if navarro can be removed. Possible discharge this afternoon. Encouraged she ambulate today. She agrees. Review of Systems: CONSTITUTIONAL: No malaise or change in sensation of wellbeing. ENMT: No rhinorrhea, otorrhea, sinus pain, ear ache. CARDIOVASCULAR: No angina, palpitations, orthopnea or paroxysmal dyspnea. RESPIRATORY: No SOB. GASTROINTESTINAL: No abdominal pain, nausea, vomiting, diarrhea, hematemesis, melena or change in the patient's habitual bowel movements consistency/number. GENITOURINARY: No dysuria, hematuria or change in bladder continence. MUSCULOSKELETAL: No new muscle pain or decrease in muscular strength. No new joint swelling, redness or tenderness. SKIN: No new rash. Physical Exam: GEN: Awake, alert, oriented in person, time and place, and in no acute distress. HEENT:No rhinorrhea. Oral pharyngeal mucosa is pink, moist and within normal limits. CHEST: Inspection, and palpation of the chest were unremarkable. Lung auscultation revealed normal breath sounds bilaterally. CARDIAC: PMI is within normal limits. Heart sounds are regular. ABD: Soft, non-tender and not distended. No peritoneal signs on palpation. No organomegaly. Normal bowel sounds. Incisions D&I eliseo with dermabond. TORSTEN drain with serosanguinous output. Navarro cath with clear yellow urine. EXT: No cyanosis or clubbing. 1-2 + edema to bilateral lower extremities. SCDS in place. . SKIN: Intact. No rashes. JOINTS: No evidence of synovitis or acute arthritis. NEURO: Alert and oriented to name, place and person. No focal motor deficits. Normal speech. Strength is normal. Vital Signs (last 8hr) Date Time Temp Pulse Resp B/P (MAP) Pulse Ox O2 Delivery O2 Flow Rate FiO2 07/13/24 04:00 98.8 81 18 111/63 94 Room Air Laboratory: [ ] Laboratory: Test 07/13/24 05:03 07/12/24 19:42 07/12/24 16:35 07/12/24 04:39 Range/Units White Blood Count 8.8 4.8-10.8 K/uL Red Blood Count 3.06 L 4.00-5.50 MIL/uL Hemoglobin 9.7 L 12.0-16.0 g/dL Hematocrit 29.8 L 36-48 % Mean Corpuscular Volume 97.4 79-99 fL Mean Corpuscular Hemoglobin 31.7 27.0-33.0 pg Mean Corpuscular Hemoglobin Concent 32.6 32.0-36.0 g/dL Red Cell Distribution Width 13.5 11.0-15.5 % Platelet Count 227 130-400 K/uL Mean Platelet Volume 10.4 7.5-10.5 fL Immature Granulocyte % (Auto) 0.6 0-1 % Neutrophils (%) (Auto) 68.8 40.0-77.0 % Lymphocytes (%) (Auto) 14.1 L 21.0-51.0 % Monocytes (%) (Auto) 15.8 H 3.0-13.0 % Eosinophils (%) (Auto) 0.6 0.0-8.0 % Basophils (%) (Auto) 0.1 0.0-5.0 % Neutrophils # (Auto) 6.0 1.8-7.7 K/uL Lymphocytes # (Auto) 1.2 1.0-4.8 K/uL Monocytes # (Auto) 1.4 H 0.1-1.0 K/uL Eosinophils # (Auto) 0.05 0.00-0.70 K/uL Basophils # (Auto) 0.01 0.00-0.20 K/uL Absolute Immature Granulocyte (auto 0.05 0-1 K/uL Nucleated Red Blood Cells 0.0 0.0-0.19 % Sodium Level 142 136-145 mmol/L Potassium Level 3.8 3.5-5.1 mmol/L Chloride Level 108 101-111 mmol/L Carbon Dioxide Level 29 21-32 mmol/L Blood Urea Nitrogen 13 7-18 mg/dL Creatinine 1.0 0.5-1.0 mg/dL Glomerular Filtration Rate Calc 57 >90 mL/min Random Glucose 113 H 70-105 mg/dL Total Calcium 8.1 L 8.5-10.1 mg/dL Whole Blood Glucose 133 H 70-110 MG/DL Bedside Glucose Comment Notified Nurse White Cell Morphology Comment CONSISTENT W/DIFF Hemoglobin A1c 5.9 4.0-6.0 % Estimated Average Glucose (eAG) 123 70-126 mg/dL Magnesium Level 1.70 L 1.80-2.40 mg/dL Thyroid Stimulating Hormone (TSH) 0.42 0.36-3.74 uIU/mL Current Medications Medications (Trade) Dose Ordered Sig/Brandon Route PRN Reason Start Time Stop Time Status Last Admin Dose Admin Acetaminophen (TYLenol 325MG TAB) 650 mg Q4H PRN PO TEMPERATURE GREATER THAN 101 07/11/24 14:00 08/10/24 13:59 07/11/24 20:34 650 MG Acetaminophen/ Hydrocodone Bitart (NORco 5/325MG) 1 tab Q4H PRN PO MODERATE PAIN (4-6) 07/11/24 14:00 07/16/24 13:59 07/12/24 16:58 1 TAB Atorvastatin Calcium (LIPItor 10MG) 5 mg HS PO 07/11/24 21:00 08/10/24 20:59 07/12/24 20:01 5 MG Enoxaparin Sodium (Lovenox) 40 mg DAILY SQ 07/12/24 09:00 08/11/24 08:59 07/12/24 08:45 40 MG Ertapenem 50 ml @ 100 mls/hr ONCALL IV 07/11/24 07:00 07/11/24 14:00 DC Famotidine (Pepcid 20mg Vial) 20 mg DAILY IV 07/12/24 09:00 08/11/24 08:59 07/12/24 08:41 20 MG Gabapentin (NEURontin 100 mg CAP) 100 mg AM PO 07/12/24 09:00 08/11/24 08:59 07/12/24 08:39 100 MG Gabapentin (NEURontin 100 mg CAP) 200 mg HS PO 07/11/24 21:00 08/10/24 20:59 07/12/24 20:01 200 MG Home Med (Home Medication) (Vitamin B Complex & Vit C N... AM PO 07/12/24 09:00 08/11/24 08:59 Home Med (Home Medication) ([L Thyroxine] 150 MCG) AM PO 07/12/24 09:00 08/11/24 08:59 Hydralazine HCl (APRESOLine 20MG INJ) 5 mg Q6H PRN IV ADMINISTER FOR SBP > 160 07/11/24 19:30 08/10/24 19:29 Insulin Human Regular (humuLIN R 100 UNIT/ML 3ML) AD PRN SQ SLIDING SCALE COVERAGE 07/11/24 14:00 08/10/24 13:59 Loratadine (LORATAdine 10 mg) 10 mg AM PO 07/12/24 09:00 08/11/24 08:59 07/12/24 08:41 10 MG Losartan Potassium (CozAAR 50 mg TAB) 50 mg BID PO 07/11/24 21:00 07/11/24 15:41 DC Losartan Potassium (CozAAR 50 mg TAB) 50 mg BID PO 07/11/24 21:00 08/10/24 20:59 07/11/24 20:02 50 MG Metoprolol Succinate (TopROL XL) 25 mg BID PO 07/11/24 21:00 08/10/24 20:59 07/12/24 20:01 25 MG Metoprolol Succinate (TopROL XL) 50 mg BID PO 07/11/24 21:00 08/10/24 20:59 07/12/24 20:01 50 MG Morphine Sulfate (morPHINE 2MG SYG) 2 mg Q3H PRN IV MODERATE PAIN (4-6) 07/11/24 14:00 07/11/24 14:06 DC Morphine Sulfate (morPHINE 4MG SYG) 4 mg Q3H PRN IV SEVERE PAIN (7-10) 07/11/24 14:00 07/18/24 13:59 07/13/24 02:57 4 MG Ondansetron HCl (zoFRAN 4MG INJ) 4 mg Q4H PRN IVP NAUSEA 07/11/24 14:00 08/10/24 13:59 Pharmacy Profile Note (Pharmacy Communication) 1 each ONCE MISC 07/12/24 09:30 07/12/24 09:45 DC Potassium Chloride/Dextrose/ Sod Cl 1,000 ml @ 75 mls/hr [id number] IV 07/11/24 14:00 08/10/24 13:59 07/13/24 03:33 75 MLS/HR Vitamin B Complex/ Vit C/Folic Acid (Nephrovite Tablet) 1 cap DAILY PO 07/12/24 09:00 08/11/24 08:59 07/12/24 08:41 1 CAP ] Assessment: [Colovaginal fistula, diverticulitis POD2: Patient progressing well. VSS. She is tolerating her diet. She has ambulated with PT assistance. Cystogram pending. Plan for discharge in the next 24 hours. Will reevaluate this pm. ] Plan: [Soft diet Cystogram this am; leave navarro in place. Encourage ambulation tid PT to assist with ambulation Encourage I/S exercises Pain meds as needed Antiemetics prn Please call with questions, concerns, and change in clinical status' Plan for disposition in the next 24-48 hours Appreciate hospitalist's assistance in our patient's care. ] DYLAN ELIZALDE NP Jul 13, 2024 08:02
[2024-07-13] MEDS ORDERED: MAGNESIUM 2GM PREMIX 50ML 50 ML IV PRN (11:00)
--- NOTE | 2024-07-13 11:09 | PN ---
[facility] PROGRESS NOTE Date of Service: Jul 13, 2024 Time of Service: 11:07 SUBJECTIVE: [ ] 83-year-old female with underlying history of hypertension, hyperlipidemia, atrial fibrillation, type 2 diabetes mellitus, history of chronic anticoagulation with Eliquis who has a history of colovaginal fistula followed by Dr. Richard with Colorectal surgery as outpatient. Status post robotic low anterior resection with lysis of intra-abdominal adhesions, colorectal anastomosis and repair of colovesical fistula. Is scheduled for a cystogram today. Patient recuperating well hemodynamically stable. 07/13/24 patient is fully awake alert oriented x3 recuperating well no nausea no vomiting. Patient is going for a cystogram today was not done yesterday. Patient is hemodynamically stable. REVIEW OF SYSTEMS CONSTITUTIONAL: Denies fevers, chills, or night sweats. No unintentional weight loss reported. NEUROLOGICAL: Denies headache, amaurosis fugax, motor weakness, sensory deficit, vertigo/spinning sensation, gait abnormalities, or tremors. ENT: No hearing loss, otalgia, otorrhea, rhinitis, rhinorrhea, hoarseness, or sore throat. CARDIOVASCULAR: Denies any exertional angina, dyspnea on exertion, orthopnea, paroxysmal nocturnal dyspnea, palpitations, life-threatening arrhythmias, claudication. PULMONARY: Denies any shortness of breath, cough, phlegm/sputum, hemoptysis, pleuritic chest pain. SLEEP: Denies morning headaches, daytime somnolence or napping. Denies difficulty falling asleep, staying asleep, waking from sleep. Denies knowledge of snoring. GASTROINTESTINAL: Postoperative abdominal pain as expected GENITOURINARY: Denies frequency, urgency, nocturia, hematuria or incontinence (Storage/Irritative symptoms.) Low urinary stream, straining to void, urinary intermittency or hesitancy, splitting of the voiding stream, terminal dribbling. ENDOCRINOLOGIC: Denies polyuria, polydipsia, polyphagia or heat/cold intolerances. HEMATOLOGIC: Denies thrombophilia/previous clots, or coagulopathy/bleeding disorders. ONCOLOGIC: Denies personal history of malignancy. DERMATOLOGIC: Denies rashes or pruritus. PSYCHIATRIC: Denies any suicidal or homicidal ideation. Denies hallucinations. PHYSICAL EXAM GENERAL APPEARANCE: The patient is awake, alert, and oriented, in no acute cardiopulmonary distress. NEUROLOGICAL: Cranial nerves II-XII grossly intact. Motor is 5/5 in bilateral upper and lower extremities proximal to distal. No sensory deficits. HEENT: Face is symmetric. Pupils are equal and reactive. Extraocular movements are intact. NECK: Supple. No JVD. No thyromegaly. No submental, submandibular, pre- /postauricular, occipital or supraclavicular lymphadenopathy. CHEST: Normal chest expansion. No Telemetry. LUNGS: Absence of any rales, rhonchi or any wheezing. CARDIOVASCULAR: Regular. S1 and S2 normal. No appreciable rubs, murmurs or gallops. ABDOMEN: Soft, surgical incision site appears clean, dry and intact : Deferred. No Omer. EXTREMITIES: Non-edematous and not cyanotic. No clubbing. Good capillary refill. SKIN: No skin breakdown. Vital Signs (last 8hr) Date Time Temp Pulse Resp B/P (MAP) Pulse Ox O2 Delivery O2 Flow Rate FiO2 07/13/24 08:00 98.4 86 19 134/56 93 Room Air 21 07/13/24 04:00 98.8 81 18 111/63 94 Room Air LABS: Laboratory: Test 07/13/24 05:03 07/12/24 19:42 07/12/24 16:35 07/12/24 04:39 Range/Units White Blood Count 8.8 4.8-10.8 K/uL Red Blood Count 3.06 L 4.00-5.50 MIL/uL Hemoglobin 9.7 L 12.0-16.0 g/dL Hematocrit 29.8 L 36-48 % Mean Corpuscular Volume 97.4 79-99 fL Mean Corpuscular Hemoglobin 31.7 27.0-33.0 pg Mean Corpuscular Hemoglobin Concent 32.6 32.0-36.0 g/dL Red Cell Distribution Width 13.5 11.0-15.5 % Platelet Count 227 130-400 K/uL Mean Platelet Volume 10.4 7.5-10.5 fL Immature Granulocyte % (Auto) 0.6 0-1 % Neutrophils (%) (Auto) 68.8 40.0-77.0 % Lymphocytes (%) (Auto) 14.1 L 21.0-51.0 % Monocytes (%) (Auto) 15.8 H 3.0-13.0 % Eosinophils (%) (Auto) 0.6 0.0-8.0 % Basophils (%) (Auto) 0.1 0.0-5.0 % Neutrophils # (Auto) 6.0 1.8-7.7 K/uL Lymphocytes # (Auto) 1.2 1.0-4.8 K/uL Monocytes # (Auto) 1.4 H 0.1-1.0 K/uL Eosinophils # (Auto) 0.05 0.00-0.70 K/uL Basophils # (Auto) 0.01 0.00-0.20 K/uL Absolute Immature Granulocyte (auto 0.05 0-1 K/uL Nucleated Red Blood Cells 0.0 0.0-0.19 % Sodium Level 142 136-145 mmol/L Potassium Level 3.8 3.5-5.1 mmol/L Chloride Level 108 101-111 mmol/L Carbon Dioxide Level 29 21-32 mmol/L Blood Urea Nitrogen 13 7-18 mg/dL Creatinine 1.0 0.5-1.0 mg/dL Glomerular Filtration Rate Calc 57 >90 mL/min Random Glucose 113 H 70-105 mg/dL Total Calcium 8.1 L 8.5-10.1 mg/dL Whole Blood Glucose 133 H 70-110 MG/DL Bedside Glucose Comment Notified Nurse White Cell Morphology Comment CONSISTENT W/DIFF Hemoglobin A1c 5.9 4.0-6.0 % Estimated Average Glucose (eAG) 123 70-126 mg/dL Magnesium Level 1.70 L 1.80-2.40 mg/dL Thyroid Stimulating Hormone (TSH) 0.42 0.36-3.74 uIU/mL Current Medications Medications (Trade) Dose Ordered Sig/Brandon Route PRN Reason Start Time Stop Time Status Last Admin Dose Admin Acetaminophen (TYLenol 325MG TAB) 650 mg Q4H PRN PO TEMPERATURE GREATER THAN 101 07/11/24 14:00 08/10/24 13:59 07/11/24 20:34 650 MG Acetaminophen/ Hydrocodone Bitart (NORco 5/325MG) 1 tab Q4H PRN PO MODERATE PAIN (4-6) 07/11/24 14:00 07/16/24 13:59 07/13/24 08:27 1 TAB Atorvastatin Calcium (LIPItor 10MG) 5 mg HS PO 07/11/24 21:00 08/10/24 20:59 07/12/24 20:01 5 MG Enoxaparin Sodium (Lovenox) 40 mg DAILY SQ 07/12/24 09:00 08/11/24 08:59 07/13/24 10:00 40 MG Ertapenem 50 ml @ 100 mls/hr ONCALL IV 07/11/24 07:00 07/11/24 14:00 DC Famotidine (Pepcid 20mg Vial) 20 mg DAILY IV 07/12/24 09:00 08/11/24 08:59 07/13/24 09:59 20 MG Gabapentin (NEURontin 100 mg CAP) 100 mg AM PO 07/12/24 09:00 08/11/24 08:59 07/13/24 09:59 100 MG Gabapentin (NEURontin 100 mg CAP) 200 mg HS PO 07/11/24 21:00 08/10/24 20:59 07/12/24 20:01 200 MG Home Med (Home Medication) (Vitamin B Complex & Vit C N... AM PO 07/12/24 09:00 08/11/24 08:59 Home Med (Home Medication) ([L Thyroxine] 150 MCG) AM PO 07/12/24 09:00 07/13/24 10:14 DC Home Med (Home Medication) ([L Thyroxine] 150 MCG) AM PO 07/13/24 06:00 08/12/24 05:59 Hydralazine HCl (APRESOLine 20MG INJ) 5 mg Q6H PRN IV ADMINISTER FOR SBP > 160 07/11/24 19:30 08/10/24 19:29 Insulin Human Regular (humuLIN R 100 UNIT/ML 3ML) AD PRN SQ SLIDING SCALE COVERAGE 07/11/24 14:00 08/10/24 13:59 Loratadine (LORATAdine 10 mg) 10 mg AM PO 07/12/24 09:00 08/11/24 08:59 07/13/24 09:59 10 MG Losartan Potassium (CozAAR 50 mg TAB) 50 mg BID PO 07/11/24 21:00 07/11/24 15:41 DC Losartan Potassium (CozAAR 50 mg TAB) 50 mg BID PO 07/11/24 21:00 08/10/24 20:59 07/13/24 09:59 50 MG Magnesium Sulfate 50 ml @ 0 mls/hr PROTOCOL PRN IV MAGNESIUM PROTOCOL 07/13/24 11:00 08/12/24 10:59 Metoprolol Succinate (TopROL XL) 25 mg BID PO 07/11/24 21:00 08/10/24 20:59 07/13/24 09:58 25 MG Metoprolol Succinate (TopROL XL) 50 mg BID PO 07/11/24 21:00 08/10/24 20:59 07/13/24 09:58 50 MG Morphine Sulfate (morPHINE 2MG SYG) 2 mg Q3H PRN IV MODERATE PAIN (4-6) 07/11/24 14:00 07/11/24 14:06 DC Morphine Sulfate (morPHINE 4MG SYG) 4 mg Q3H PRN IV SEVERE PAIN (7-10) 07/11/24 14:00 07/18/24 13:59 07/13/24 02:57 4 MG Ondansetron HCl (zoFRAN 4MG INJ) 4 mg Q4H PRN IVP NAUSEA 07/11/24 14:00 08/10/24 13:59 Pharmacy Profile Note (Pharmacy Communication) 1 each ONCE MISC 07/12/24 09:30 07/12/24 09:45 DC Potassium Chloride/Dextrose/ Sod Cl 1,000 ml @ 75 mls/hr [id number] IV 07/11/24 14:00 08/10/24 13:59 07/13/24 03:33 75 MLS/HR Vitamin B Complex/ Vit C/Folic Acid (Nephrovite Tablet) 1 cap DAILY PO 07/12/24 09:00 08/11/24 08:59 07/13/24 09:58 1 CAP DIAGNOSTICS / RADIOLOGY: [ ] ASSESSMENT: History of colo-vaginal fistula and diverticulitis, POA Status post robotic low anterior resection with extensive lysis of abdominal adhesions with Colorectal anastomosis and repair of colo-vaginal fistula by Dr. Richard, 07/11/2024 History of hypertension, POA Hyperlipidemia, POA Type 2 diabetes mellitus, POA History of paroxysmal atrial fibrillation, POA History of chronic anticoagulation with Eliquis, POA Chronic kidney disease, POA hypomagnesemia History of renal cell cancer status post right nephrectomy, POA PLAN: admit: medical-surgical floor under telemetry monitoring consulted for Medical management: primary DR Richard patient having cystogram today post operatively s/p robotic low anterior resection with extensive lysis of abdominal adhesions with Colorectal anastomosis and repair of colo-vaginal fistula will follow surgeon post operative recommendation cont with IVF's on Eliqus; defer to surgery when to restart Diet: CLD defer Encourage ambulation and deep breathing exercise while awake. IS usage Home medications resumed: metoprolol succinate 75 mg b.i.d. for management of atrial fibrillation and lostartan for BP controlled cont with sliding scale insulin a.c. and HS Replace electrolytes as per protocol to keep potassium above 4.0 magnesium 2.0. Continue pain management for adequate pain control PT services Continue with DVT prophylaxis Lovenox, and Pepcid All questions addressed Further orders as per response to treatment Thank you for consulting [facility] hospitalist group ATTESTATION BY PHYSICIAN I have seen and examined the patient. I reviewed the documentation, medical decision making, and treatment plan as noted by the mid-level provider above. I agree with the findings and plan of care. Lovely Lynn MD ATTESTATION BY PHYSICIAN I have seen and examined the patient. I reviewed the documentation, medical decision making, and treatment plan as noted by the mid-level provider above. I agree with the findings and plan of care. Lovely Lynn MD, ELIZABETH NP Jul 13, 2024 11:09
--- NOTE | 2024-07-13 11:32 | HMCIMG ---
HISTORY: Technique: Cystografin was administered and overheads were obtained. Comparison: None. Findings: A survey examination of the pelvis demonstrates Omer catheter within the urinary bladder. Grade 1 anterolisthesis, chronic, L5 over S1 caused by chronic facet fractures. 300 cc of Cysto-Conray was introduced through the Omer catheter into the bladder via gravity. The bladder contour is smooth. No extravasation of contrast is seen. No ureteral reflux is seen. A post-void view was taken, demonstrating symmetrical near-complete emptying of the bladder. IMPRESSION: No evidence of extravasation, bladder irregularity, or ureteral reflux. No fistula identified.
--- NOTE | 2024-07-13 14:42 | NUR ---
F/C Omer catheter discontinued at this time, with 1000ml urine output, denies any complaints of pain.
[2024-07-13] MEDS: MAGNESIUM 2GM PREMIX 50ML 50 ML IV PRN (14:48)
--- NOTE | 2024-07-13 17:20 | PN ---
[facility] PROGRESS NOTE Date of Visit: Jul 13, 2024 Time of Visit: 17:17 Events / Notes: [83 yo with colovaginal fistula and diverticulitis who underwent a robotic low anterior resection with creation of omental flap, intraoperative flexible sig moidoscopy, and extensive lysis of adhesions. Her VSS this morning and she is hemodynamically stable. On exam, patient is resting in HF. Respirations unlabored with BBS clear. She has tolerated clear fluids with no n/v. Abdomen is soft with active bs. Incisions D&I eliseo with dermabond. Torsten drain with sanguinous output. Navarro cath draining clear concentrated urine. SCDS in place. Oriented to poc and encouraged I/S exercises and ambulation. She verbalized understanding and agreement. Son at bedside. 07/13/24: VSS. WBC wnl. She is tolerating soft diet without any n/v. BBS are clear. Abdomen is soft and not distended. Active BS present. Incisions with some ecchymosis. Less tenderness today. She has not passed any flatus. Cystogram is pending. She is requesting to be discharged today. Informed of need to wait for cystogram report and will determine if navarro can be removed. Possible discharge this afternoon. Encouraged she ambulate today. She agrees. 07/13/24 17:00: The patient is doing better. VSS. She is voiding well and has passed watery stool and flatus. Reports pain is better. She would like to be discharged in am. Will leave overnight. Home care instructions and er warnings given. She is to f/u at [facility] on 07/23/24. She agrees. Review of Systems: CONSTITUTIONAL: No malaise or change in sensation of wellbeing. ENMT: No rhinorrhea, otorrhea, sinus pain, ear ache. CARDIOVASCULAR: No angina, palpitations, orthopnea or paroxysmal dyspnea. RESPIRATORY: No SOB. GASTROINTESTINAL: No abdominal pain, nausea, vomiting, diarrhea, hematemesis, melena or change in the patient's habitual bowel movements consistency/number. GENITOURINARY: No dysuria, hematuria or change in bladder continence. MUSCULOSKELETAL: No new muscle pain or decrease in muscular strength. No new joint swelling, redness or tenderness. SKIN: No new rash. Physical Exam: GEN: Awake, alert, oriented in person, time and place, and in no acute distress. HEENT:No rhinorrhea. Oral pharyngeal mucosa is pink, moist and within normal limits. CHEST: Inspection, and palpation of the chest were unremarkable. Lung auscultation revealed normal breath sounds bilaterally. CARDIAC: PMI is within normal limits. Heart sounds are regular. ABD: Soft, non-tender and not distended. No peritoneal signs on palpation. No organomegaly. Normal bowel sounds. Incisions D&I eliseo with dermabond. TORSTEN drain with serous output. EXT: No cyanosis or clubbing. 1-2 + edema to bilateral lower extremities. SKIN: Intact. No rashes. JOINTS: No evidence of synovitis or acute arthritis. NEURO: Alert and oriented to name, place and person. No focal motor deficits. Normal speech. Gait normal; Strength is normal. Vital Signs (last 8hr) Date Time Temp Pulse Resp B/P (MAP) Pulse Ox O2 Delivery O2 Flow Rate FiO2 07/13/24 16:00 98.6 81 16 113/48 95 Room Air 21 07/13/24 12:00 98.2 73 18 112/79 97 Room Air 21 Laboratory: [ ] Laboratory: Test 07/13/24 16:18 07/13/24 05:03 07/12/24 04:39 Range/Units Whole Blood Glucose 122 H 70-110 MG/DL Bedside Glucose Comment Notified Nurse White Blood Count 8.8 4.8-10.8 K/uL Red Blood Count 3.06 L 4.00-5.50 MIL/uL Hemoglobin 9.7 L 12.0-16.0 g/dL Hematocrit 29.8 L 36-48 % Mean Corpuscular Volume 97.4 79-99 fL Mean Corpuscular Hemoglobin 31.7 27.0-33.0 pg Mean Corpuscular Hemoglobin Concent 32.6 32.0-36.0 g/dL Red Cell Distribution Width 13.5 11.0-15.5 % Platelet Count 227 130-400 K/uL Mean Platelet Volume 10.4 7.5-10.5 fL Immature Granulocyte % (Auto) 0.6 0-1 % Neutrophils (%) (Auto) 68.8 40.0-77.0 % Lymphocytes (%) (Auto) 14.1 L 21.0-51.0 % Monocytes (%) (Auto) 15.8 H 3.0-13.0 % Eosinophils (%) (Auto) 0.6 0.0-8.0 % Basophils (%) (Auto) 0.1 0.0-5.0 % Neutrophils # (Auto) 6.0 1.8-7.7 K/uL Lymphocytes # (Auto) 1.2 1.0-4.8 K/uL Monocytes # (Auto) 1.4 H 0.1-1.0 K/uL Eosinophils # (Auto) 0.05 0.00-0.70 K/uL Basophils # (Auto) 0.01 0.00-0.20 K/uL Absolute Immature Granulocyte (auto 0.05 0-1 K/uL Nucleated Red Blood Cells 0.0 0.0-0.19 % Sodium Level 142 136-145 mmol/L Potassium Level 3.8 3.5-5.1 mmol/L Chloride Level 108 101-111 mmol/L Carbon Dioxide Level 29 21-32 mmol/L Blood Urea Nitrogen 13 7-18 mg/dL Creatinine 1.0 0.5-1.0 mg/dL Glomerular Filtration Rate Calc 57 >90 mL/min Random Glucose 113 H 70-105 mg/dL Total Calcium 8.1 L 8.5-10.1 mg/dL White Cell Morphology Comment CONSISTENT W/DIFF Hemoglobin A1c 5.9 4.0-6.0 % Estimated Average Glucose (eAG) 123 70-126 mg/dL Magnesium Level 1.70 L 1.80-2.40 mg/dL Thyroid Stimulating Hormone (TSH) 0.42 0.36-3.74 uIU/mL Current Medications Medications (Trade) Dose Ordered Sig/Brandon Route PRN Reason Start Time Stop Time Status Last Admin Dose Admin Acetaminophen (TYLenol 325MG TAB) 650 mg Q4H PRN PO TEMPERATURE GREATER THAN 101 07/11/24 14:00 08/10/24 13:59 07/11/24 20:34 650 MG Acetaminophen/ Hydrocodone Bitart (NORco 5/325MG) 1 tab Q4H PRN PO MODERATE PAIN (4-6) 07/11/24 14:00 07/16/24 13:59 07/13/24 08:27 1 TAB Atorvastatin Calcium (LIPItor 10MG) 5 mg HS PO 07/11/24 21:00 08/10/24 20:59 07/12/24 20:01 5 MG Enoxaparin Sodium (Lovenox) 40 mg DAILY SQ 07/12/24 09:00 08/11/24 08:59 07/13/24 10:00 40 MG Ertapenem 50 ml @ 100 mls/hr ONCALL IV 07/11/24 07:00 07/11/24 14:00 DC Famotidine (Pepcid 20mg Vial) 20 mg DAILY IV 07/12/24 09:00 08/11/24 08:59 07/13/24 09:59 20 MG Gabapentin (NEURontin 100 mg CAP) 100 mg AM PO 07/12/24 09:00 08/11/24 08:59 07/13/24 09:59 100 MG Gabapentin (NEURontin 100 mg CAP) 200 mg HS PO 07/11/24 21:00 08/10/24 20:59 07/12/24 20:01 200 MG Home Med (Home Medication) (Vitamin B Complex & Vit C N... AM PO 07/12/24 09:00 08/11/24 08:59 Home Med (Home Medication) ([L Thyroxine] 150 MCG) AM PO 07/12/24 09:00 07/13/24 10:14 DC Home Med (Home Medication) ([L Thyroxine] 150 MCG) AM PO 07/13/24 06:00 07/13/24 14:39 DC Home Med (Home Medication) ([L Thyroxine] 150 MCG) Q24H PO 07/14/24 06:00 08/13/24 05:59 Hydralazine HCl (APRESOLine 20MG INJ) 5 mg Q6H PRN IV ADMINISTER FOR SBP > 160 07/11/24 19:30 08/10/24 19:29 Insulin Human Regular (humuLIN R 100 UNIT/ML 3ML) AD PRN SQ SLIDING SCALE COVERAGE 07/11/24 14:00 08/10/24 13:59 Loratadine (LORATAdine 10 mg) 10 mg AM PO 07/12/24 09:00 08/11/24 08:59 07/13/24 09:59 10 MG Losartan Potassium (CozAAR 50 mg TAB) 50 mg BID PO 07/11/24 21:00 07/11/24 15:41 DC Losartan Potassium (CozAAR 50 mg TAB) 50 mg BID PO 07/11/24 21:00 08/10/24 20:59 07/13/24 09:59 50 MG Magnesium Sulfate 50 ml @ 0 mls/hr PROTOCOL PRN IV MAGNESIUM PROTOCOL 07/13/24 11:00 07/13/24 11:08 DC Magnesium Sulfate 50 ml @ 0 mls/hr PROTOCOL PRN IV low mag level 07/13/24 11:30 08/12/24 11:29 07/13/24 14:48 25 MLS/HR Metoprolol Succinate (TopROL XL) 25 mg BID PO 07/11/24 21:00 08/10/24 20:59 07/13/24 09:58 25 MG Metoprolol Succinate (TopROL XL) 50 mg BID PO 07/11/24 21:00 08/10/24 20:59 07/13/24 09:58 50 MG Morphine Sulfate (morPHINE 2MG SYG) 2 mg Q3H PRN IV MODERATE PAIN (4-6) 07/11/24 14:00 07/11/24 14:06 DC Morphine Sulfate (morPHINE 4MG SYG) 4 mg Q3H PRN IV SEVERE PAIN (7-10) 07/11/24 14:00 07/18/24 13:59 07/13/24 13:26 4 MG Ondansetron HCl (zoFRAN 4MG INJ) 4 mg Q4H PRN IVP NAUSEA 07/11/24 14:00 08/10/24 13:59 Pharmacy Profile Note (Pharmacy Communication) 1 each ONCE MISC 07/12/24 09:30 07/12/24 09:45 DC Potassium Chloride/Dextrose/ Sod Cl 1,000 ml @ 75 mls/hr [id number] IV 07/11/24 14:00 08/10/24 13:59 07/13/24 03:33 75 MLS/HR Vitamin B Complex/ Vit C/Folic Acid (Nephrovite Tablet) 1 cap DAILY PO 07/12/24 09:00 08/11/24 08:59 07/13/24 09:58 1 CAP ] Assessment: [Colovaginal fistula, diverticulitis POD2: Patient progressing well. VSS. She is tolerating her diet. She has ambul ated with steady gait. Cystogram negative and patient is already voiding well and passing stool. Plan for discharge in the next 24 hours.] Plan: [Soft Encourage ambulation tid PT to assist with ambulation Encourage I/S exercises Pain meds as needed Antiemetics prn Please call with questions, concerns, and change in clinical status' Plan for disposition in the next 24 hours form colorectal standpoint. Appreciate hospitalist's assistance in our patient's care. ] DYLAN ELIZALDE NP Jul 13, 2024 17:20
[2024-07-14] VITALS: BP 101/45; PULSE 78; RESP 18; TEMP 98.2
[2024-07-14 04:00] VITALS: BP 129/69; PULSE 75; RESP 19; TEMP 98
[2024-07-14] MEDS: THYROXINE PO SCH (05:04)
[2024-07-14 05:50] LABS: BASOPHILS # (AUTO) 0.02 K/uL (0.00-0.20); BASOPHILS % (AUTO) 0.2 % (0.0-5.0); EOSINOPHILS # (AUTO) 0.19 K/uL (0.00-0.70); EOSINOPHILS % (AUTO) 2.3 % (0.0-8.0); HEMATOCRIT 31.2 % (36-48); IMMATURE GRANULOCYTE ABSOLUTE 0.04 K/uL (0-1); LYMPHOCYTES # (AUTO) 1.2 K/uL (1.0-4.8); LYMPHOCYTES % (AUTO) 14.6 % (21.0-51.0); MEAN CORPUSCULAR HEMOGLOBIN 32.2 pg (27.0-33.0); MEAN CORPUSCULAR HGB CONC 32.4 g/dL (32.0-36.0); MEAN CORPUSCULAR VOLUME 99.4 fL (79-99); MONOCYTES # (AUTO) 1.1 K/uL (0.1-1.0); MONOCYTES % (AUTO) 13.3 % (3.0-13.0); NEUTROPHILS # (AUTO) 5.8 K/uL (1.8-7.7); NEUTROPHILS % (AUTO) 69.1 % (40.0-77.0); PLATELET COUNT (AUTO) 217 K/uL (130-400); RED BLOOD CELL COUNT(AUTO) 3.14 MIL/uL (4.00-5.50); RED CELL DISTRIBUTION WIDTH 13.4 % (11.0-15.5); WHITE BLOOD COUNT (AUTO) 8.4 K/uL (4.8-10.8)
[2024-07-14 06:06] LABS: CREATININE 0.9 mg/dL (0.5-1.0); MAGNESIUM 2.1 mg/dL (1.80-2.40); POTASSIUM 4.1 mmol/L (3.5-5.1)
[2024-07-14 08:00] VITALS: BP 116/57; PULSE 85; RESP 16; TEMP 98.8; O2SAT 95
--- NOTE | 2024-07-14 09:12 | PN ---
[facility] PROGRESS NOTE Date of Service: Jul 14, 2024 Time of Service: 09:09 SUBJECTIVE: [ ] 83-year-old female with underlying history of hypertension, hyperlipidemia, atrial fibrillation, type 2 diabetes mellitus, history of chronic anticoagulation with Eliquis who has a history of colovaginal fistula followed by Dr. Rihcard with Colorectal surgery as outpatient. Status post robotic low anterior resection with lysis of intra-abdominal adhesions, colorectal anastomosis and repair of colovesical fistula. Is scheduled for a cystogram today. Patient recuperating well hemodynamically stable. 07/13/24 patient is fully awake alert oriented x3 recuperating well no nausea no vomiting. Patient is going for a cystogram today was not done yesterday. Patient is hemodynamically stable. 07/14/24 the patient is recuperating well. Hemodynamically stable. REVIEW OF SYSTEMS CONSTITUTIONAL: Denies fevers, chills, or night sweats. No unintentional weight loss reported. NEUROLOGICAL: Denies headache, amaurosis fugax, motor weakness, sensory deficit, vertigo/spinning sensation, gait abnormalities, or tremors. ENT: No hearing loss, otalgia, otorrhea, rhinitis, rhinorrhea, hoarseness, or sore throat. CARDIOVASCULAR: Denies any exertional angina, dyspnea on exertion, orthopnea, paroxysmal nocturnal dyspnea, palpitations, life-threatening arrhythmias, claudication. PULMONARY: Denies any shortness of breath, cough, phlegm/sputum, hemoptysis, pleuritic chest pain. SLEEP: Denies morning headaches, daytime somnolence or napping. Denies difficulty falling asleep, staying asleep, waking from sleep. Denies knowledge of snoring. GASTROINTESTINAL: Postoperative abdominal pain as expected GENITOURINARY: Denies frequency, urgency, nocturia, hematuria or incontinence (Storage/Irritative symptoms.) Low urinary stream, straining to void, urinary intermittency or hesitancy, splitting of the voiding stream, terminal dribbling. ENDOCRINOLOGIC: Denies polyuria, polydipsia, polyphagia or heat/cold intolerances. HEMATOLOGIC: Denies thrombophilia/previous clots, or coagulopathy/bleeding disorders. ONCOLOGIC: Denies personal history of malignancy. DERMATOLOGIC: Denies rashes or pruritus. PSYCHIATRIC: Denies any suicidal or homicidal ideation. Denies hallucinations. PHYSICAL EXAM GENERAL APPEARANCE: The patient is awake, alert, and oriented, in no acute cardiopulmonary distress. NEUROLOGICAL: Cranial nerves II-XII grossly intact. Motor is 5/5 in bilateral upper and lower extremities proximal to distal. No sensory deficits. HEENT: Face is symmetric. Pupils are equal and reactive. Extraocular movements are intact. NECK: Supple. No JVD. No thyromegaly. No submental, submandibular, pre- /postauricular, occipital or supraclavicular lymphadenopathy. CHEST: Normal chest expansion. No Telemetry. LUNGS: Absence of any rales, rhonchi or any wheezing. CARDIOVASCULAR: Regular. S1 and S2 normal. No appreciable rubs, murmurs or gallops. ABDOMEN: Soft, surgical incision site appears clean, dry and intact : Deferred. No Omer. EXTREMITIES: Non-edematous and not cyanotic. No clubbing. Good capillary refill. SKIN: No skin breakdown. Vital Signs (last 8hr) Date Time Temp Pulse Resp B/P (MAP) Pulse Ox O2 Delivery O2 Flow Rate FiO2 07/14/24 08:00 98.8 85 16 116/57 96 Room Air 21 07/14/24 04:00 98.1 75 19 129/69 95 Room Air LABS: Laboratory: Test 07/14/24 05:28 07/14/24 05:23 07/13/24 16:18 Range/Units White Blood Count 8.4 4.8-10.8 K/uL Red Blood Count 3.14 L 4.00-5.50 MIL/uL Hemoglobin 10.1 L 12.0-16.0 g/dL Hematocrit 31.2 L 36-48 % Mean Corpuscular Volume 99.4 H 79-99 fL Mean Corpuscular Hemoglobin 32.2 27.0-33.0 pg Mean Corpuscular Hemoglobin Concent 32.4 32.0-36.0 g/dL Red Cell Distribution Width 13.4 11.0-15.5 % Platelet Count 217 130-400 K/uL Mean Platelet Volume 9.9 7.5-10.5 fL Immature Granulocyte % (Auto) 0.5 0-1 % Neutrophils (%) (Auto) 69.1 40.0-77.0 % Lymphocytes (%) (Auto) 14.6 L 21.0-51.0 % Monocytes (%) (Auto) 13.3 H 3.0-13.0 % Eosinophils (%) (Auto) 2.3 0.0-8.0 % Basophils (%) (Auto) 0.2 0.0-5.0 % Neutrophils # (Auto) 5.8 1.8-7.7 K/uL Lymphocytes # (Auto) 1.2 1.0-4.8 K/uL Monocytes # (Auto) 1.1 H 0.1-1.0 K/uL Eosinophils # (Auto) 0.19 0.00-0.70 K/uL Basophils # (Auto) 0.02 0.00-0.20 K/uL Absolute Immature Granulocyte (auto 0.04 0-1 K/uL Nucleated Red Blood Cells 0.0 0.0-0.19 % Sodium Level 144 136-145 mmol/L Potassium Level 4.1 3.5-5.1 mmol/L Chloride Level 110 101-111 mmol/L Carbon Dioxide Level 28 21-32 mmol/L Blood Urea Nitrogen 12 7-18 mg/dL Creatinine 0.9 0.5-1.0 mg/dL Glomerular Filtration Rate Calc 64 >90 mL/min Random Glucose 100 70-105 mg/dL Total Calcium 8.6 8.5-10.1 mg/dL Magnesium Level 2.10 1.80-2.40 mg/dL Whole Blood Glucose 99 70-110 MG/DL Bedside Glucose Comment Notified Nurse Current Medications Medications (Trade) Dose Ordered Sig/Brandon Route PRN Reason Start Time Stop Time Status Last Admin Dose Admin Acetaminophen (TYLenol 325MG TAB) 650 mg Q4H PRN PO TEMPERATURE GREATER THAN 101 07/11/24 14:00 08/10/24 13:59 07/13/24 21:29 650 MG Acetaminophen/ Hydrocodone Bitart (NORco 5/325MG) 1 tab Q4H PRN PO MODERATE PAIN (4-6) 07/11/24 14:00 07/16/24 13:59 07/13/24 22:00 1 TAB Atorvastatin Calcium (LIPItor 10MG) 5 mg HS PO 07/11/24 21:00 08/10/24 20:59 07/13/24 21:26 5 MG Enoxaparin Sodium (Lovenox) 40 mg DAILY SQ 07/12/24 09:00 08/11/24 08:59 07/13/24 10:00 40 MG Ertapenem 50 ml @ 100 mls/hr ONCALL IV 07/11/24 07:00 07/11/24 14:00 DC Famotidine (Pepcid 20mg Vial) 20 mg DAILY IV 07/12/24 09:00 08/11/24 08:59 07/13/24 09:59 20 MG Gabapentin (NEURontin 100 mg CAP) 100 mg AM PO 07/12/24 09:00 08/11/24 08:59 07/13/24 09:59 100 MG Gabapentin (NEURontin 100 mg CAP) 200 mg HS PO 07/11/24 21:00 08/10/24 20:59 07/13/24 21:27 200 MG Home Med (Home Medication) (Vitamin B Complex & Vit C N... AM PO 07/12/24 09:00 08/11/24 08:59 Home Med (Home Medication) ([L Thyroxine] 150 MCG) AM PO 07/12/24 09:00 07/13/24 10:14 DC Home Med (Home Medication) ([L Thyroxine] 150 MCG) AM PO 07/13/24 06:00 07/13/24 14:39 DC Home Med (Home Medication) ([L Thyroxine] 150 MCG) Q24H PO 07/14/24 06:00 08/13/24 05:59 Hydralazine HCl (APRESOLine 20MG INJ) 5 mg Q6H PRN IV ADMINISTER FOR SBP > 160 07/11/24 19:30 08/10/24 19:29 Insulin Human Regular (humuLIN R 100 UNIT/ML 3ML) AD PRN SQ SLIDING SCALE COVERAGE 07/11/24 14:00 08/10/24 13:59 Loratadine (LORATAdine 10 mg) 10 mg AM PO 07/12/24 09:00 08/11/24 08:59 07/13/24 09:59 10 MG Losartan Potassium (CozAAR 50 mg TAB) 50 mg BID PO 07/11/24 21:00 07/11/24 15:41 DC Losartan Potassium (CozAAR 50 mg TAB) 50 mg BID PO 07/11/24 21:00 08/10/24 20:59 07/13/24 21:27 50 MG Magnesium Sulfate 50 ml @ 0 mls/hr PROTOCOL PRN IV MAGNESIUM PROTOCOL 07/13/24 11:00 07/13/24 11:08 DC Magnesium Sulfate 50 ml @ 0 mls/hr PROTOCOL PRN IV low mag level 07/13/24 11:30 08/12/24 11:29 07/13/24 14:48 25 MLS/HR Metoprolol Succinate (TopROL XL) 25 mg BID PO 07/11/24 21:00 08/10/24 20:59 07/13/24 21:26 25 MG Metoprolol Succinate (TopROL XL) 50 mg BID PO 07/11/24 21:00 08/10/24 20:59 07/13/24 21:26 50 MG Morphine Sulfate (morPHINE 2MG SYG) 2 mg Q3H PRN IV MODERATE PAIN (4-6) 07/11/24 14:00 07/11/24 14:06 DC Morphine Sulfate (morPHINE 4MG SYG) 4 mg Q3H PRN IV SEVERE PAIN (7-10) 07/11/24 14:00 07/18/24 13:59 07/13/24 13:26 4 MG Ondansetron HCl (zoFRAN 4MG INJ) 4 mg Q4H PRN IVP NAUSEA 07/11/24 14:00 08/10/24 13:59 Pharmacy Profile Note (Pharmacy Communication) 1 each ONCE MISC 07/12/24 09:30 07/12/24 09:45 DC Potassium Chloride/Dextrose/ Sod Cl 1,000 ml @ 75 mls/hr [id number] IV 07/11/24 14:00 08/10/24 13:59 07/13/24 03:33 75 MLS/HR Vitamin B Complex/ Vit C/Folic Acid (Nephrovite Tablet) 1 cap DAILY PO 07/12/24 09:00 08/11/24 08:59 07/13/24 09:58 1 CAP DIAGNOSTICS / RADIOLOGY: [ ] ASSESSMENT: History of colo-vaginal fistula and diverticulitis, POA Status post robotic low anterior resection with extensive lysis of abdominal adhesions with Colorectal anastomosis and repair of colo-vaginal fistula by Dr. Richard, 07/11/2024 History of hypertension, POA Hyperlipidemia, POA Type 2 diabetes mellitus, POA History of paroxysmal atrial fibrillation, POA History of chronic anticoagulation with Eliquis, POA Chronic kidney disease, POA hypomagnesemia History of renal cell cancer status post right nephrectomy, POA PLAN: admit: medical-surgical floor under telemetry monitoring consulted for Medical management: primary DR Richard cytogram was negative s/p robotic low anterior resection with extensive lysis of abdominal adhesions with Colorectal anastomosis and repair of colo-vaginal fistula will follow surgeon post operative recommendation on Eliqus; defer to surgery when to restart Diet: tolerating GT soft Encourage ambulation and deep breathing exercise while awake. IS usage Home medications resumed: metoprolol succinate 75 mg b.i.d. for management of atrial fibrillation and lostartan for BP controlled cont with sliding scale insulin a.c. and HS Replace electrolytes as per protocol to keep potassium above 4.0 magnesium 2.0. Continue pain management for adequate pain control PT services Continue with DVT prophylaxis Lovenox, and Pepcid All questions addressed Further orders as per response to treatment Thank you for consulting [facility] hospitalist group will sign off ATTESTATION BY PHYSICIAN I have seen and examined the patient. I reviewed the documentation, medical decision making, and treatment plan as noted by the mid-level provider above. I agree with the findings and plan of care. Lovely Lynn MD, ELIZABETH NP Jul 14, 2024 09:12
--- NOTE | 2024-07-14 10:31 | PN ---
[facility] PROGRESS NOTE Date of Visit: Jul 14, 2024 Time of Visit: 10:25 Events / Notes: [83 yo with colovaginal fistula and diverticulitis who underwent a robotic low anterior resection with creation of omental flap, intraoperative flexible sig moidoscopy, and extensive lysis of adhesions. Her VSS this morning and she is hemodynamically stable. On exam, patient is resting in HF. Respirations unlabored with BBS clear. She has tolerated clear fluids with no n/v. Abdomen is soft with active bs. Incisions D&I eliseo with dermabond. Torsten drain with sanguinous output. Navarro cath draining clear concentrated urine. SCDS in place. Oriented to poc and encouraged I/S exercises and ambulation. She verbalized understanding and agreement. Son at bedside. 07/13/24: VSS. WBC wnl. She is tolerating soft diet without any n/v. BBS are clear. Abdomen is soft and not distended. Active BS present. Incisions with some ecchymosis. Less tenderness today. She has not passed any flatus. Cystogram is pending. She is requesting to be discharged today. Informed of need to wait for cystogram report and will determine if navarro can be removed. Possible discharge this afternoon. Encouraged she ambulate today. She agrees. 07/13/24 17:00: The patient is doing better. VSS. She is voiding well and has passed watery stool and flatus. Reports pain is better. She would like to be discharged in am. Will leave overnight. Home care instructions and er warnings given. She is to f/u at [facility] on 07/23/24. She agrees. 07/14/24: The patient is clinically stable. Vital signs stable. The patient has been ambulating, voiding, and passing watery stools and flatus. Patient endorses pain that is tolerable with Tylenol. TORSTEN drain with 80 cc of serosanguineous fluid overnight as per nursing staff. This morning TORSTEN drain with minimal output. Incisions are clean and dry and well approximated. There is an incision in between folds of the skin around the abdominal pannus. Recommend the area stays clean and dry. Review of Systems: CONSTITUTIONAL: No malaise or change in sensation of wellbeing. ENMT: No rhinorrhea, otorrhea, sinus pain, ear ache. CARDIOVASCULAR: No angina, palpitations, orthopnea or paroxysmal dyspnea. RESPIRATORY: No SOB. GASTROINTESTINAL: No abdominal pain, nausea, vomiting, diarrhea, hematemesis, melena or change in the patient's habitual bowel movements consistency/number. GENITOURINARY: No dysuria, hematuria or change in bladder continence. MUSCULOSKELETAL: No new muscle pain or decrease in muscular strength. No new joint swelling, redness or tenderness. SKIN: No new rash. Physical Exam: GEN: Awake, alert, oriented in person, time and place, and in no acute distress. HEENT:No rhinorrhea. Oral pharyngeal mucosa is pink, moist and within normal limits. CHEST: Inspection, and palpation of the chest were unremarkable. Lung auscultation revealed normal breath sounds bilaterally. CARDIAC: PMI is within normal limits. Heart sounds are regular. ABD: Soft, non-tender and not distended. No peritoneal signs on palpation. No organomegaly. Normal bowel sounds. Incisions D&I eliseo with dermabond. TORSTEN drain with serous output. EXT: No cyanosis or clubbing. 1-2 + edema to bilateral lower extremities. SKIN: Intact. No rashes. JOINTS: No evidence of synovitis or acute arthritis. NEURO: Alert and oriented to name, place and person. No focal motor deficits. Normal speech. Gait normal; Strength is normal. Vital Signs (last 8hr) Date Time Temp Pulse Resp B/P (MAP) Pulse Ox O2 Delivery O2 Flow Rate FiO2 07/14/24 08:00 98.8 85 16 116/57 96 Room Air 21 07/14/24 04:00 98.1 75 19 129/69 95 Room Air Laboratory: [ ] Laboratory: Test 07/14/24 05:28 07/14/24 05:23 07/13/24 16:18 Range/Units White Blood Count 8.4 4.8-10.8 K/uL Red Blood Count 3.14 L 4.00-5.50 MIL/uL Hemoglobin 10.1 L 12.0-16.0 g/dL Hematocrit 31.2 L 36-48 % Mean Corpuscular Volume 99.4 H 79-99 fL Mean Corpuscular Hemoglobin 32.2 27.0-33.0 pg Mean Corpuscular Hemoglobin Concent 32.4 32.0-36.0 g/dL Red Cell Distribution Width 13.4 11.0-15.5 % Platelet Count 217 130-400 K/uL Mean Platelet Volume 9.9 7.5-10.5 fL Immature Granulocyte % (Auto) 0.5 0-1 % Neutrophils (%) (Auto) 69.1 40.0-77.0 % Lymphocytes (%) (Auto) 14.6 L 21.0-51.0 % Monocytes (%) (Auto) 13.3 H 3.0-13.0 % Eosinophils (%) (Auto) 2.3 0.0-8.0 % Basophils (%) (Auto) 0.2 0.0-5.0 % Neutrophils # (Auto) 5.8 1.8-7.7 K/uL Lymphocytes # (Auto) 1.2 1.0-4.8 K/uL Monocytes # (Auto) 1.1 H 0.1-1.0 K/uL Eosinophils # (Auto) 0.19 0.00-0.70 K/uL Basophils # (Auto) 0.02 0.00-0.20 K/uL Absolute Immature Granulocyte (auto 0.04 0-1 K/uL Nucleated Red Blood Cells 0.0 0.0-0.19 % Sodium Level 144 136-145 mmol/L Potassium Level 4.1 3.5-5.1 mmol/L Chloride Level 110 101-111 mmol/L Carbon Dioxide Level 28 21-32 mmol/L Blood Urea Nitrogen 12 7-18 mg/dL Creatinine 0.9 0.5-1.0 mg/dL Glomerular Filtration Rate Calc 64 >90 mL/min Random Glucose 100 70-105 mg/dL Total Calcium 8.6 8.5-10.1 mg/dL Magnesium Level 2.10 1.80-2.40 mg/dL Whole Blood Glucose 99 70-110 MG/DL Bedside Glucose Comment Notified Nurse Current Medications Medications (Trade) Dose Ordered Sig/Brandon Route PRN Reason Start Time Stop Time Status Last Admin Dose Admin Acetaminophen (TYLenol 325MG TAB) 650 mg Q4H PRN PO TEMPERATURE GREATER THAN 101 07/11/24 14:00 08/10/24 13:59 07/13/24 21:29 650 MG Acetaminophen/ Hydrocodone Bitart (NORco 5/325MG) 1 tab Q4H PRN PO MODERATE PAIN (4-6) 07/11/24 14:00 07/16/24 13:59 07/14/24 09:57 1 TAB Atorvastatin Calcium (LIPItor 10MG) 5 mg HS PO 07/11/24 21:00 08/10/24 20:59 07/13/24 21:26 5 MG Enoxaparin Sodium (Lovenox) 40 mg DAILY SQ 07/12/24 09:00 08/11/24 08:59 07/14/24 09:55 40 MG Ertapenem 50 ml @ 100 mls/hr ONCALL IV 07/11/24 07:00 07/11/24 14:00 DC Famotidine (Pepcid 20mg Vial) 20 mg DAILY IV 07/12/24 09:00 08/11/24 08:59 07/14/24 09:54 20 MG Gabapentin (NEURontin 100 mg CAP) 100 mg AM PO 07/12/24 09:00 08/11/24 08:59 07/14/24 09:54 100 MG Gabapentin (NEURontin 100 mg CAP) 200 mg HS PO 07/11/24 21:00 08/10/24 20:59 07/13/24 21:27 200 MG Home Med (Home Medication) (Vitamin B Complex & Vit C N... AM PO 07/12/24 09:00 08/11/24 08:59 Home Med (Home Medication) ([L Thyroxine] 150 MCG) AM PO 07/12/24 09:00 07/13/24 10:14 DC Home Med (Home Medication) ([L Thyroxine] 150 MCG) AM PO 07/13/24 06:00 07/13/24 14:39 DC Home Med (Home Medication) ([L Thyroxine] 150 MCG) Q24H PO 07/14/24 06:00 08/13/24 05:59 Hydralazine HCl (APRESOLine 20MG INJ) 5 mg Q6H PRN IV ADMINISTER FOR SBP > 160 07/11/24 19:30 08/10/24 19:29 Insulin Human Regular (humuLIN R 100 UNIT/ML 3ML) AD PRN SQ SLIDING SCALE COVERAGE 07/11/24 14:00 08/10/24 13:59 Loratadine (LORATAdine 10 mg) 10 mg AM PO 07/12/24 09:00 08/11/24 08:59 07/14/24 09:54 10 MG Losartan Potassium (CozAAR 50 mg TAB) 50 mg BID PO 07/11/24 21:00 07/11/24 15:41 DC Losartan Potassium (CozAAR 50 mg TAB) 50 mg BID PO 07/11/24 21:00 08/10/24 20:59 07/13/24 21:27 50 MG Magnesium Sulfate 50 ml @ 0 mls/hr PROTOCOL PRN IV MAGNESIUM PROTOCOL 07/13/24 11:00 07/13/24 11:08 DC Magnesium Sulfate 50 ml @ 0 mls/hr PROTOCOL PRN IV low mag level 07/13/24 11:30 08/12/24 11:29 07/13/24 14:48 25 MLS/HR Metoprolol Succinate (TopROL XL) 25 mg BID PO 07/11/24 21:00 08/10/24 20:59 07/14/24 09:53 25 MG Metoprolol Succinate (TopROL XL) 50 mg BID PO 07/11/24 21:00 08/10/24 20:59 07/14/24 09:54 50 MG Morphine Sulfate (morPHINE 2MG SYG) 2 mg Q3H PRN IV MODERATE PAIN (4-6) 07/11/24 14:00 07/11/24 14:06 DC Morphine Sulfate (morPHINE 4MG SYG) 4 mg Q3H PRN IV SEVERE PAIN (7-10) 07/11/24 14:00 07/18/24 13:59 07/13/24 13:26 4 MG Ondansetron HCl (zoFRAN 4MG INJ) 4 mg Q4H PRN IVP NAUSEA 07/11/24 14:00 08/10/24 13:59 Pharmacy Profile Note (Pharmacy Communication) 1 each ONCE MISC 07/12/24 09:30 07/12/24 09:45 DC Potassium Chloride/Dextrose/ Sod Cl 1,000 ml @ 75 mls/hr [id number] IV 07/11/24 14:00 07/14/24 09:11 DC 07/13/24 03:33 75 MLS/HR Vitamin B Complex/ Vit C/Folic Acid (Nephrovite Tablet) 1 cap DAILY PO 07/12/24 09:00 08/11/24 08:59 07/14/24 09:54 1 CAP ] Assessment: [Colovaginal fistula, diverticulitis POD3: Patient progressing well. VSS. She is tolerating her diet. She has ambulated with steady gait. Cystogram negative and patient is already voiding well and passing stool.] Plan: [Soft diet Encourage ambulation tid PT to assist with ambulation Encourage I/S exercises Pain meds as needed Antiemetics prn. We can DC TORSTEN drain this am. Appreciate hospitalist's assistance in our patient's care. The patient is cleared to discharge home from a colorectal surgery standpoint. ] PLACIDO SMITH Jul 14, 2024 10:31
--- NOTE | 2024-07-14 10:36 | DS ---
Discharge Summary Assessment The patient is postoperative day 3. Tolerated the procedure well. Stabilizing. Clinically stable. Vital signs stable. REBEKAH drain with minimal serosanguineous output. Hospital Course In the past 3 days the patient has improved clinically. Postoperative day 3. Very stable. Incision care, hydration, activity and dietary restrictions discussed with the patient. The patient understands and agrees. The patient may resume home medications and GI soft diet. The plan is to discharge the patient home today. Patient agreeable. PLACIDO SMITH Jul 14, 2024 10:36
[2024-07-14 12:00] VITALS: BP 133/63; PULSE 81; RESP 18; TEMP 98.3
--- NOTE | 2024-07-14 17:00 | NUR ---
PATIENT DISCHARGED HOME VIA WHEELCHAIR WITHCOPIES OF DISCHARGE ILIANA
== END 2024-07-14 17:10 | disposition home or self-care (01) | DRG 330 ==
LOC: DAHIP 07-11 06:06 → 4DH 07-11 15:42
PROVIDERS: ADMIT Internal Medicine; ATTEND Internal Medicine
PROC: 0DXU0ZW Transfer Omentum to Abdominal Region, Open Approach (ICD-10-PCS; 2024-07-11)
PROC: 8E0W4CZ Robotic Assisted Procedure of Trunk Region, Percutaneous Endoscopic Approach (ICD-10-PCS; 2024-07-11)
PROC: 0DJD8ZZ Inspection of Lower Intestinal Tract, Via Natural or Artificial Opening Endoscopic (ICD-10-PCS; principal; 2024-07-11 09:44)
PROC: 0DBG4ZZ Excision of Left Large Intestine, Percutaneous Endoscopic Approach (ICD-10-PCS; 2024-07-11 09:44)
PROC: 0DNW4ZZ Release Peritoneum, Percutaneous Endoscopic Approach (ICD-10-PCS; 2024-07-11 09:44)
DX: K57.32 Diverticulitis of large intestine without perforation or abscess without bleeding (principal); N32.1 Vesicointestinal fistula; I12.9 Hypertensive chronic kidney disease with stage 1 through stage 4 chronic kidney disease, or unspecified chronic kidney disease; E11.22 Type 2 diabetes mellitus with diabetic chronic kidney disease; N18.9 Chronic kidney disease, unspecified; K66.0 Peritoneal adhesions (postprocedural) (postinfection); K21.9 Gastro-esophageal reflux disease without esophagitis; E83.42 Hypomagnesemia; E78.5 Hyperlipidemia, unspecified; Z96.659 Presence of unspecified artificial knee joint; Z79.01 Long term (current) use of anticoagulants; Z85.528 Personal history of other malignant neoplasm of kidney; Z88.2 Allergy status to sulfonamides; Z88.5 Allergy status to narcotic agent; Z90.5 Acquired absence of kidney; Z90.710 Acquired absence of both cervix and uterus
CPT/HCPCS: 36415; 45330; 74430; 80048; 80053; 82948; 83036; 83735; 84443; 85025; 85610; 85730; 86850; 86900; 86901; 93005; A4344; G0378; J1100; J1335; J1650; J2003; J2270; J2371; J2405; J2704; J2710; J3010; J3475; J3480; J3490; J7030; J7120; Q9958; Q9968; A4215; A4216; A4221; A4222; A4223; A4600; A4649; A4663; A4930; A6260; C1762; C1769; J0665; J0690